=== PATIENT | female | born 1950 | race Caucasian/White ===

== ENCOUNTER 2020-03-04 09:55 | Outpatient (CLI) | payer OTHER, SELFPAY ==
--- NOTE | 2020-03-04 11:22 | ECG_ITS ---
Measurements Intervals [place] Rate: 80 P: -11 AL: 158 QRS: -33 QRSD: 101 T: 46 QT: 380 QTc: 439 Interpretive Statements SINUS RHYTHM LEFT AXIS DEVIATION POOR R WAVE PROGRESSION, ANTERIOR LEADS BORDERLINE T WAVE ABNORMALITY- ANTEROLATERAL LEADS BASELINE ARTIFACT- I, II, III, AVR, AVL, AVF BORDERLINE ECG Electronically Signed On 03-04-2020 12:25:40 CDT by Corby Bain D.O.
[2020-03-04 11:55] LABS: Add Urine Microscopic? YES; Appearance Urine Clear (Clear); Bacteria Urine Trace /hpf; Bilirubin Urine Negative (Negative); Color Urine Yellow (Yellow); Glucose Urine UA Negative (Negative); Ketones Urine Negative (Negative); Leukocyte Esterase Ur Trace LEU/UL (Negative); Mucus Urine Rare /lpf; Nitrate Urine Positive (Negative); Protein Urine Negative (Negative); Specific Grav Ur 1.021 (1.001-1.035); Squamous Epithelial Cell Urine Rare /hpf (Few); Urobilinogen Urine Negative mg/dL (<2.0)
[2020-03-04 11:58] LABS: INR 0.9; Prothrombin Time 11.9 Seconds (11.1-14.7)
[2020-03-04 11:59] LABS: Partial Thromboplastin Time 29.9 SECONDS (22.3-36.8)
[2020-03-04 12:00] LABS: Albumin Level 4.1 g/dL (3.5-5.1)
[2020-03-04 12:16] LABS: Hemoglobin A1C 5.4 % (<5.7)
[2020-03-04 12:16] LABS: Urine Cotinine NEGATIVE
[2020-03-04 12:39] LABS: Blood Urine Negative (Negative)
== END 2020-03-04 09:56 | disposition home or self-care (01) ==
PROVIDERS: PCP Internal Medicine; Visit Provider Orthopaedic Surgery
DX: Z01.818 Encounter for other preprocedural examination (principal); M17.11 Unilateral primary osteoarthritis, right knee
CPT/HCPCS: 36415; 80307; 81001; 82040; 83036; 85610; 85730; 86850; 86900; 86901; 87077; 87081; 87086; 87088; 87186; 93005

== ENCOUNTER 2020-03-11 00:10 | Outpatient (CLI) | payer OTHER, SELFPAY ==
[2020-03-11 20:23] LABS: SARS-CoV-2 RNA PCR Negative
== END 2020-03-11 00:11 | disposition home or self-care (01) ==
LOC: ANHCOVIDDT 00:10
PROVIDERS: PCP Internal Medicine; Visit Provider Orthopaedic Surgery
DX: Z01.812 Encounter for preprocedural laboratory examination (principal); Z20.828 Contact with and (suspected) exposure to other viral communicable diseases; M17.11 Unilateral primary osteoarthritis, right knee
CPT/HCPCS: 87635; C9803; U0003

== ENCOUNTER 2020-03-14 15:52 | Observation (INO) | payer OTHER, SELFPAY ==
[2020-03-04 09:34] VITALS: BP 126/78; PULSE 90; RESP 16; TEMP 37.2; O2SAT 96; BMI 26.0
--- NOTE | 2020-03-12 12:36 | WPDANESEPPF ---
Anes - Initial Pre Proc Eval Procedure: Operation Date: 03/13/20 07:30 Proposed Procedures p Right Total Knee Arthroplasty - Elvin Mon MD s Removal Hardware Right Anterior Cruciate Ligament - Elvin Mon MD Date/Time: 03/12/20 12:36 Surgeon: Elvin Mon MD Pre Op Diagnosis: Right Knee DJD Patient Data Age: 70 Gender: F Height: 1.66 m Weight: 72.1 kg Last Vital Signs Temp 37.2 C 03/04/20 09:34 Pulse 90 03/04/20 09:34 Resp 16 03/04/20 09:34 BP 126/78 03/04/20 09:34 Pulse Ox 96 03/04/20 09:34 Allergies Allergy/AdvReac Type Severity Reaction Status Date / Time codeine AdvReac Unknown Nausea and Verified 03/13/20 06:54 Vomiting Home Medications Medication Instructions Recorded Confirmed Type chlorhexidine gluconate 4 % 1 applic TOPICAL ONCE #237 ml 01/15/20 03/13/20 Rx topical liquid amitriptyline 10 mg PO HS 03/04/20 03/13/20 History ascorbic acid (vitamin C) 500 mg PO DAILY 03/04/20 03/13/20 History ascorbic acid-elderberry fruit 1 tablet PO DAILY 03/04/20 03/13/20 History [Airborne (elderberry)] cyanocobalamin (vitamin B-12) 500 mcg PO DAILY 03/04/20 03/13/20 History [Vitamin B-12] hydrochlorothiazide 12.5 mg PO QAM 03/04/20 03/13/20 History levothyroxine [Synthroid] 100 mcg PO QAM 03/04/20 03/13/20 History metoprolol tartrate 25 mg PO HS 03/04/20 03/13/20 History [id number] acid-trp897 1 tablet PO DAILY 03/04/20 03/13/20 History [Alive Women's Gummy Vitamin] sulfamethoxazole 800 1 tablet PO BID #20 tablet 03/06/20 03/13/20 Rx mg-trimethoprim 160 mg tablet Patient hx anesthesia problems: none Family hx anesthesia problems: none PMFSH Past Medical History Medical History (Updated 03/12/20 @ 12:38 by Taj Johnson MD) Arthritis Depression Endometriosis HTN (hypertension) Hypothyroidism Overweight (BMI 25.0-29.9) Social History Social History Smoking status: Never smoker Second hand tobacco smoke exposure: No Additional smoking assessment comments: DENIES ANY FORM OF TOBACCO USE Substance use: never Living arrangements: alone Spiritual care concerns: No Anes - Eval Final PreProcedure Day of Procedure 03/12/20 12:36 Patient weight: overweight Heart: regular rate and rhythm Lungs: clear to auscultation and normal air movement Airway: Mallampati scale class II Neurological: alert and oriented Last oral intake: >/= 8 hours ASA classification: II Emergent: no Anesthetic plan: proceed Anesthesia type and monitoring: general LMA Informed Consent: The patient's anesthetic plan and its attendant risks and benefits were discussed with the patient/family/POA. Questions were solicited and answers provided to the satisfaction of the patient/family/POA.
[2020-03-13] VITALS (14 sets, daily range): BP systolic 101–180; BP diastolic 61–81; PULSE 71–81; RESP 12–20; TEMP 36.1–36.9; O2SAT 92–100; BMI 31.5
[2020-03-13] MEDS: LACTATED RINGERS 1,000 ML 30 ML IV CONT ×2 (06:46→09:50)
[2020-03-13] MEDS: ACETAMINOPHEN 500 MG TABLET 1000 MG PO (06:47)
--- NOTE | 2020-03-13 07:07 | WPDANESPNB ---
Anes - Peripheral Nerve Block Date/Time: 03/13/20 07:07 I have discussed with the patient/family/POA the placement of a peripheral nerve block for post-operative pain management, including associated risks, benefits, complications, and side effects. Alternative methods of post-operative analgesia were detailed. Questions were solicited and answers provided to the satisfaction of the patient/family/POA. Time-Out: A pre-procedural Time-Out was completed immediately before starting the procedure and confirmed: Patient Identification, Site, Procedure, Patient Position and the Availability of Requisite Equipment. Clinical Indications: Acute post-operative pain management requested by the operative surgeon. Nerve Block Insertion Note Anes-nerve block: adductor canal right Patient position: supine Skin prep: chlorhexidine Needle: 22 gauge, stimulating, insulated echogenic needle. Needle length: 80 mm Technique: ultrasound Technique comment: in plane Injectate: bupivacaine 0.5% with epi 5 mcg/ml (30cc) Observations: tolerated well Complications: none Procedure start time:: 730 Procedure end time:: 73
--- NOTE | 2020-03-13 07:18 | WPDHPUPDATE1 ---
History and Physical Update Update Date/Time: 03/13/20 07:18 History and Physical has been reviewed, including an updated exam of the patient. There are NO changes in the patient's condition. Risks, benefits, and alternatives have been discussed and questions answered. Patient agrees to proceed with procedure.
[2020-03-13] MEDS: CELECOXIB 200 MG CAPSULE PO ×2 (07:29→17:05)
[2020-03-13] MEDS: TRANEXAMIC ACID 1,000MG/ISO100 1,000 MG/100 ML BAG 200 MG IVPB (07:42)
[2020-03-13] MEDS: ceFAZolin 2 GM/D5W 50 ML 2 GM/50 ML BAG IVPB ×3 (07:43→23:56)
[2020-03-13] MEDS: GENTAMICIN BONE CEMENT REFOBACIN 1 EACH TOPICAL (08:17)
[2020-03-13] MEDS: TRANEXAMIC ACID 1,000 MG/10 ML AMPUL 1000 MG IV PUSH (09:02)
--- NOTE | 2020-03-13 09:47 | PM.OP ---
Procedure Note - Brief Procedure Note - Brief Date of procedure: 03/13/20 Pre-op diagnosis: Right Knee DJD, RETAINED HARDWARE Post-op diagnosis: same Procedure performed: R TKA HARDWARE REMOVAL RIGHT KNEE Anesthesia: GETA Surgeon: Elvin Mon MD Estimated blood loss (mL): 100 Complications: No immediate complications Condition: stable Disposition: PACU
--- NOTE | 2020-03-13 10:33 | SUR.PHASEI ---
[id number] sbar faxed floor notified
--- NOTE | 2020-03-13 10:59 | OP_ITS ---
DATE OF PROCEDURE: 03/13/2020 PREOPERATIVE DIAGNOSES: 1. Right knee DJD. 2. Retained hardware. POSTOPERATIVE DIAGNOSES: 1. Right knee DJD. 2. Retained hardware. PROCEDURE: Right total knee arthroplasty and removal of hardware, right knee. ANESTHESIA: General. COMPLICATIONS: None. INDICATIONS: This is a 70-year-old female with advanced DJD and retained hardware. She was indicated for right total knee arthroplasty with hardware removal. DESCRIPTION OF PROCEDURE: The patient was taken to the operating room in stable condition, placed in a supine position. General anesthesia was induced and then, the right lower extremity was prepped and draped sterilely from the toes to the thighs. Midline skin incision was made and then, the incision continued distally to the old incision, which was just medial to the tibial tubercle. The medial parapatellar arthrotomy was performed. The patella was everted. An IM qing was placed in the femur and distal femoral cut was made at 5 degrees of valgus removing approximately 9 mm of bone from the high side. Then, the knee was sized to a 60 and the cutting block was placed in alignment with Whitesides line and the transepicondylar axis and anterior, posterior, and chamfer cuts were made to the femur. Once that was performed, then the superior lateral ACL screw was identified and it was removed in its entirety. Once that was performed, then an IM qing was placed in tibia and transtibial cut was made removing approximately 10 mm of bone from the high side of the tibia. Once that was performed, the tibial screw from the prior ACL reconstruction was removed in its entirety. The tibia then was planed to a smooth surface. Posterior osteophytes were removed from the femur. Size 67 tibial trial was placed in line with one-third medial aspect of the tibial tubercle and then, a 60 femoral trial was placed and then eventually a 16 CR poly trial was placed. The knee came out to full extension. There was good stability in varus-valgus stress. There was no maltracking of the patella. There was good AP stability. There was no excessive rollback in flexion. The trial instrumentation was removed and then, a Biomet 67 tibial tubercle and a 60 femoral components were cemented into place with a 16 CR poly, which was secured into place. The knee came out to full extension. There was good stability in varus-valgus stress. After the cement was hardened, the knee was evaluated. The tracking of the patella was without any tilt. There was good AP stability and good varus-valgus stability. There was no excessive rollback in flexion. The tourniquet was deflated. The bleeders were cauterized. The wound was irrigated with sterile water and sterile Betadine for 3 minutes straight and then, the deep fascial layers were approximated with #1 Vicryl, subcutaneous with 2-0 Vicryl, and skin with ernie. Wound was washed, placed a sterile dressing. The patient was extubated. Rodney I MT: Lakhwinder
--- NOTE | 2020-03-13 11:10 | ADMGEN ---
This patient, Simi Cohen, was admitted to Medical Room 247-. Patient/family oriented to hospital policies and general routines including ID bracelet, bed and alarms, visiting hours, pain management, procedures, bathroom and other care routines, personal items, smoking policy, room service/diet, and visiting hours. Valuables list has been completed. Information on how to activate the Rapid Response Team has been discussed. Patient/Family are encouraged to report perceived risks to care and to ask questions if they do not understand what they are told or what they should do.
[2020-03-13] MEDS: oxyCODONE/ACETAMINOPHEN 5-325 MG TABLET 1 TABLET PO (11:44)
[2020-03-13] MEDS: diazePAM 5 MG TABLET PO (12:42)
--- NOTE | 2020-03-13 15:38 | PM.IMCN ---
Assessment and Plan Assessment and plan (1) History of total knee arthroplasty: Code(s): Z96.659 - Presence of unspecified artificial knee joint Status: Acute Assessment and Plan: DVT prophylaxis is per Dr. Mon. The patient has SCDs on bilaterally. She is on an aspirin. Postop care per Dr. Mon. Pain management per Dr. Mon. Patient is on Percocet and morphine. (2) Hypothyroidism: Code(s): E03.9 - Hypothyroidism, unspecified Status: Acute Assessment and Plan: Patient had levels checked about 1 month ago were reported as normal. Continue with her levothyroxine to for got today. Will restart morning. (3) HTN (hypertension): Code(s): I10 - Essential (primary) hypertension Status: Acute Assessment and Plan: Her blood pressure is elevated today she takes her metoprolol at night. Her hydrochlorothiazide during the day. (4) Insomnia: Code(s): G47.00 - Insomnia, unspecified Status: Chronic Assessment and Plan: She takes amitriptyline. She said that helps her sleep. HPI Data of Consult Consult date: 03/13/20 Requesting Physician: Elvin Mon MD Primary Care Provider: Meryl HerMD Consult Narrative Narrative: Simi Cohen is a 70 year old female Who has a history of right knee degenerative joint disease. Retained hardware. The patient stated that she had injury to her right knee several years ago he had torn ACL meniscus which had been repaired.. The patient has been having severe wqgz-vj-lwcm pain To her right knee. The patient does not try any injections and did not go through any physical therapy. The patient had some deformity and her leg would bed out. The patient was Nikita having a right total knee replacement before the knee went out altogether. The patient underwent a right total knee arthroplasty and removal of retained hardware per Dr. Mon today. She said that she did have a nerve block she had a right total knee arthroplasty and removal of hardware right knee please see the operative report. The patient was having some discomfort today. She states that she takes her blood pressure medicine at night so she had not taken any today. She did not take her thyroid medicine yet today. She recently had labs about a month ago and according to the records they were all within normal limits and she was cleared for surgery. I thank Dr. Mon for allowing to us to consult on this pleasant lady today. I spent approximately 30 minutes on the patient today. Date of service is 03/13/2020 Review of Systems Review of Systems: All systems reviewed & are unremarkable except as noted in HPI and below Constitutional: Constitutional: Reports as per HPI and Reports no additional constitutional complaints Eyes: Eyes: Reports as per HPI and Reports no additional eye complaints ENT: Reports system reviewed and no additional complaints, except as documented and Reports Normal hearing present Cardiovascular: Cardiovascular: Reports no additional cardiovascular complaints Respiratory: Respiratory: Reports no additional respiratory complaints and Reports no additional respiratory complaints Gastrointestinal: Gastrointestinal: Reports as per HPI and Reports no additional gastrointestinal complaints Musculoskeletal: Musculoskeletal: Reports no additional musculoskeletal complaints Integumentary/Breasts: Skin/Breast: Reports system reviewed and no additional complaints, except as docu and Reports as per HPI Neurologic: Reports system reviewed and no additional complaints, except as documented, Reports as per HPI and Reports Normal hearing present Psychiatric: Psychiatric: Reports no additional psychiatric complaints and Reports as per HPI Endocrine: Endocrine: Reports no additional endocrine complaints Hematologic/Lymphatic: Hematologic/Lymphatic: Reports no additional hematologic/lymphatic complaints Allergic/Im
[2020-03-13] MEDS: DOCUSATE SODIUM 100 MG CAPSULE PO (17:05)
[2020-03-13] MEDS: MORPHINE SULFATE 4 MG/ML INJ IV PUSH ×2 (17:05→22:19)
[2020-03-13] MEDS: SODIUM CHLORIDE 0.9% IV 1,000 ML 125 ML IV CONT (17:45)
[2020-03-13] MEDS: AMITRIPTYLINE HCL 10 MG TABLET PO (21:28)
[2020-03-13] MEDS: METOPROLOL TARTRATE 25 MG TABLET PO (21:28)
[2020-03-13] MEDS: ONDANSETRON INJ 4 MG/2 ML VIAL IV PUSH (22:18)
[2020-03-14] VITALS: BP 126/62; PULSE 73; RESP 18; TEMP 36.5; O2SAT 97
--- NOTE | ~2020-03-14 | XR_ITS ---
EXAMINATION: XR knee RT 2V DATE: 03/13/2020 10:05 INDICATION: Total right knee arthroplasty. Postop. TECHNIQUE: 2 views of right knee were obtained. COMPARISON: Right knee radiographs 02/29/2020 FINDINGS: There is a total right knee arthroplasty without patellar resurfacing in near-anatomic alig nment. No fracture. There is gas in the knee joint and soft tissues, consistent with recent surgery. Anterior skin ernie are noted. IMPRESSION: 1. Total right knee arthroplasty in near-anatomic alignment. Reviewed, dictated and finalized at location A.
[2020-03-14] MEDS: SODIUM CHLORIDE 0.9% IV 1,000 ML 125 ML IV CONT (02:30)
[2020-03-14 04:48] VITALS: BP 107/62; PULSE 58; RESP 20; TEMP 36.6; O2SAT 96
[2020-03-14 05:51] LABS: Basophils Percent Auto 0.2 % (0.2-1.2); Eosinophils Percent Auto 0.2 % (0-4.4); Hematocrit 33.2 % (37.0-47.0); Hemoglobin 10.7 g/dL (12.0-15.0); Immature Granulocyte Absolute 0.05 K/mm3 (0.00-0.031); Immature Granulocyte Percent A 0.5 % (0-0.5); Lymphocytes Absolute Auto 2.41 K/mm3 (0.9-3.2); Mean Corpuscular HGB Conc 32.2 g/dl (32-36); Mean Corpuscular Hemoglobin 31.5 pg (26-34); Mean Corpuscular Volume 97.6 fl (80-100); Mean Platelet Volume 9.7 fl (7.4-10.4); Monocytes Percent Auto 9.5 % (2.6-8.5); Neutrophils Percent Auto 66.6 % (45.5-73.1); Platelet Count Result 184 k/mm3 (150-375); Red Cell Distribution Width 14.5 % (11.5-14.5); White Blood Count 10.5 K/mm3 (4.5-10.0)
[2020-03-14 06:07] LABS: Anion Gap 3 mmol/L (8-16); Blood Urea Nitrogen 12 mg/dL (7-17); Calcium 7.9 mg/dL (8.4-10.2); Carbon Dioxide 27 mmol/L (22-30); Chloride 107 mmol/L (98-107); Estimated CRCL calculation 63 ml/min; Estimated Glomerular Filt Rate > 60; Glucose 119 mg/dL (65-105); Potassium 4.9 mmol/L (3.4-5.0); Sodium 137 mmol/L (137-145)
[2020-03-14] MEDS: LEVOTHYROXINE SODIUM 100 MCG TABLET PO (06:33)
[2020-03-14] MEDS: oxyCODONE/ACETAMINOPHEN 5-325 MG TABLET 1 TABLET PO ×4 (08:04→21:35)
[2020-03-14] MEDS: CELECOXIB 200 MG CAPSULE PO ×2 (08:06→16:33)
[2020-03-14] MEDS: ceFAZolin 2 GM/D5W 50 ML 2 GM/50 ML BAG IVPB (08:06)
[2020-03-14] MEDS: DOCUSATE SODIUM 100 MG CAPSULE PO ×2 (08:07→16:32)
[2020-03-14] MEDS: ASPIRIN 325 MG ENTERIC TABLET 650 MG PO (08:07)
[2020-03-14] MEDS: hydroCHLOROthiazide 12.5 MG CAPSULE PO (08:08)
[2020-03-14 08:48] VITALS: BP 139/69; PULSE 69; RESP 17; TEMP 36.7; O2SAT 97
--- NOTE | 2020-03-14 09:03 | PM.PNORT ---
Progress Note: A&P Assessment and Plan (1) History of total knee arthroplasty: Qualifiers: Laterality: right Qualified Code(s): Z96.651 - Presence of right artificial knee joint Code(s): Z96.659 - Presence of unspecified artificial knee joint Status: Acute Assessment and Plan: POD #1: RIGHT TKA Continue PT/OT. WBAT. Walker. Continue pain control. Ice. No pillows under knee. Reinforced incentive spirometry use. SCDs. Continue DVT prophylaxis with Aspirin. Monitor dressing. Change prior to discharge. Dispo: Home with Home Health pending progress with PT/OT and medical clearance. Subjective Subjective Date/Time Seen: 03/14/ 09:03 POD #1: RIGHT TKA Feeling better, improvement in nausea. C/o pain. Well controlled. No other complaints. Review of Systems Review of Systems: All systems reviewed & are unremarkable except as noted in HPI and below Constitutional: Constitutional: Denies fever(s) and Denies headache(s) ENT: Denies headache(s) Cardiovascular: Cardiovascular: Denies chest pain, Denies diaphoresis, Denies palpitations and Denies dyspnea Respiratory: Respiratory: Denies dyspnea Gastrointestinal: Gastrointestinal: Denies abdominal pain, Denies constipation, Denies nausea and Denies vomiting Genitourinary: Genitourinary: Reports nocturia and Denies dysuria Musculoskeletal: Musculoskeletal: Reports arthralgias (Right Knee ) and Reports joint swelling (Right Knee ) Neurologic: Denies headache(s) Endocrine: Endocrine: Denies palpitations Exam Const: General: comfortable and no acute distress Resp: Effort & Inspection: normal respiratory effort Cardio: Rate: regular rate Rhythm: regular rhythm GI: GI Palp: Yes Soft to palpation, No Tenderness to palpation present (GI) and No Guarding due to palpation present (GI) Skin: Wounds: wounds noted Other: Incision c/d/i. No surrounding redness/warmth. No hematoma. Mild ecchymosis. No wound dehiscence. Neuro: Cognition (Neuro): normal cognition Other: NV intact aside from block. Moves toes. Sensation intact to light touch. +ankle dorsiflexion/plantarflexion. 2+ pedal pulses. Extrem: Right upper extremity: normal to inspection, full ROM and normal capillary refill Left upper extremity: normal to inspection, full ROM and normal capillary refill Right lower extremity: normal to inspection, full ROM (ROM limited due to recent surgical intervention ) and knee Details: tenderness (diffuse, mild ) and swelling (diffuse, mild ) Left lower extremity: normal to inspection Psych: Mental Status: mental status grossly normal Objective Data Vital Signs Vital Signs: Vital Signs - 24 hr 03/13/20 09:55 03/13/20 10:10 03/13/20 10:25 Temperature 36.1 C L Pulse Rate 79 76 75 Respiratory Rate 16 20 20 Blood Pressure 143/81 H 161/76 H 153/79 H Pulse Oximetry 100 100 93 03/13/20 10:40 03/13/20 11:03 03/13/20 11:10 Temperature 36.5 C Pulse Rate 73 74 76 Respiratory Rate 16 15 14 Blood Pressure 162/74 H 163/81 H Pulse Oximetry 92 92 95 03/13/20 11:18 03/13/20 11:48 03/13/20 12:48 Temperature 36.8 C 36.3 C L 36.5 C Pulse Rate 71 73 72 Respiratory Rate 12 14 19 Blood Pressure 174/70 H 180/75 H 150/72 H Pulse Oximetry 95 99 99 03/13/20 16:09 03/13/20 18:13 03/13/20 20:00 Temperature 36.6 C 36.9 C 36.8 C Pulse Rate 72 71 79 Respiratory Rate 17 17 20 Blood Pressure 163/77 H 147/65 H 130/62 Pulse Oximetry 100 99 93 03/13/20 21:28 03/14/20 00:00 03/14/20 04:48 Temperature 36.5 C 36.6 C Pulse Rate 78 73 58 L Respiratory Rate 18 20 Blood Pressure 126/62 107/62 Pulse Oximetry 97 96 Intake/Output Intake/Output: Intake & Output 03/11/20 03/12/20 03/13/20 03/14/20 23:59 23:59 23:59 23:59 Intake Total 200 1150 Output Total 300 550 Balance -100 600 Meds/Results Medications: Active Medications Generic Name Dose Route Start Last Admin Trade Name Freq PRN Reason Stop Dose Admin
[2020-03-14] MEDS: ONDANSETRON INJ 4 MG/2 ML VIAL IV PUSH ×2 (09:12→13:18)
[2020-03-14] MEDS: MORPHINE SULFATE 4 MG/ML INJ IV PUSH (13:11)
[2020-03-14 14:00] VITALS: BP 131/50; PULSE 74; RESP 17; TEMP 36.5; O2SAT 93
--- NOTE | 2020-03-14 14:20 | PM.IMPN ---
Progress Note: A&P Assessment and Plan (1) History of total knee arthroplasty: Qualifiers: Laterality: right Qualified Code(s): Z96.651 - Presence of right artificial knee joint Code(s): Z96.659 - Presence of unspecified artificial knee joint Status: Acute Assessment and Plan: Patient underwent right total knee arthroplasty and removal of hardware on 03/13/[address] Mon. She tolerated the procedure well. Her pain is well controlled at this time. Postop care, weight-bearing status, dressing changes, and DVT prophylaxis per Dr. Mon. (2) Hypothyroidism: Qualifiers: Hypothyroidism type: unspecified Qualified Code(s): E03.9 - Hypothyroidism, unspecified Code(s): E03.9 - Hypothyroidism, unspecified Status: Acute Assessment and Plan: Patient reports outpatient labs approximately 1 month ago showed TSH within normal limits reported to her by her PCP. I have not physically seen these results. Continue p.o. levothyroxine. (3) HTN (hypertension): Qualifiers: Hypertension type: essential hypertension Qualified Code(s): I10 - Essential (primary) hypertension Code(s): I10 - Essential (primary) hypertension Status: Acute Assessment and Plan: Blood pressure evaluated today and stable. Previous blood pressures elevated, probably secondary to pain and missing her antihypertensives as she was NPO. Continue metoprolol and HCTZ. (4) UTI (urinary tract infection): Qualifiers: Urinary tract infection type: acute cystitis Code(s): N39.0 - Urinary tract infection, site not specified Status: Acute Assessment and Plan: Outpatient urine culture 03/06/2020 grew >100,000 CFU E coli. She completed 7 days of antibiotic therapy with Bactrim. She is asymptomatic. No need for further antibiotic treatment at this time. (5) Insomnia: Qualifiers: Insomnia type: unspecified Qualified Code(s): G47.00 - Insomnia, unspecified Code(s): G47.00 - Insomnia, unspecified Status: Chronic Assessment and Plan: She slept well last night. Patient is on amitriptyline. Continue. Subjective Date/time seen: 03/14/20 14:20 Interval history: Date of service: 03/14/2020 Patient 70-year-old female with a history hypertension hyperthyroidism here for a right total knee arthroplasty. she is feeling well today. Her pain is well controlled at this time, currently rated 4/10 in her right knee. Earlier this morning her knee was bumped by the bedside table which caused her some pain. She also felt a little bit nauseous this morning but this has subsided. She never vomited. She was able to eat lunch and keep down food. She has no shortness of breath, cough, chest pain, or palpitations. She denies headache, dizziness, or lightheadedness. She denies abdominal pain. She has not had a bowel movement since surgery but she was passing gas earlier today. She is urinating regularly and denies dysuria or hematuria. She previously was reporting some urgency but this is better now. She was recently started on treatment for urinary tract infection with Bactrim. Review of Systems Review of Systems: Narrative: A 12 point review of systems was reviewed with pertinent positives and negatives as per HPI. Exam Narrative: Exam Narrative: Ms. Cohen is a well-nourished 70-year-old female who is lying supine in bed. She appears comfortable and is in no acute respiratory distress. HR 58, BP 107/62, RR 20, T 98.0?, 96% on room air Neuro: awake, alert and oriented x4, speech clear, no focal neuro deficits noted HEENMT: normocephalic, atraumatic, EOMI, sclerae anicteric, moist oral mucosa, tongue midline Neck: supple, no lymphadenopathy Respiratory: clear to auscultation bilaterally, nonlabored breathing Cardio: regular rate, regular rhythm with S1-S2 Abdomen: nondistended, norm
[2020-03-14 21:33] VITALS: PULSE 82
[2020-03-14] MEDS: AMITRIPTYLINE HCL 10 MG TABLET PO (21:33)
[2020-03-14] MEDS: METOPROLOL TARTRATE 25 MG TABLET PO (21:33)
[2020-03-14 22:13] VITALS: BP 122/58; PULSE 82; RESP 16; TEMP 36.2; O2SAT 98
[2020-03-15] MEDS: LEVOTHYROXINE SODIUM 100 MCG TABLET PO (06:35)
[2020-03-15 07:44] VITALS: BP 120/59; PULSE 65; RESP 16; TEMP 36.6; O2SAT 93
[2020-03-15 08:45] VITALS: O2SAT 98
[2020-03-15] MEDS: oxyCODONE/ACETAMINOPHEN 5-325 MG TABLET 1 TABLET PO ×2 (08:47→16:10)
[2020-03-15] MEDS: DOCUSATE SODIUM 100 MG CAPSULE PO ×2 (08:47→16:09)
[2020-03-15] MEDS: CELECOXIB 200 MG CAPSULE PO ×2 (08:47→16:09)
[2020-03-15] MEDS: ASPIRIN 325 MG ENTERIC TABLET 650 MG PO (08:47)
[2020-03-15] MEDS: hydroCHLOROthiazide 12.5 MG CAPSULE PO (08:47)
--- NOTE | 2020-03-15 09:36 | PM.PNORT ---
Progress Note: A&P Assessment and Plan (1) History of total knee arthroplasty: Qualifiers: Laterality: right Qualified Code(s): Z96.651 - Presence of right artificial knee joint Code(s): Z96.659 - Presence of unspecified artificial knee joint Status: Acute Assessment and Plan: POD #2: RIGHT TKA Continue PT/OT. WBAT. Walker. Continue pain control. Ice. No pillows under knee. Reinforced incentive spirometry use. SCDs. Continue DVT prophylaxis with Aspirin. Monitor dressing. Change today. Dispo: Home with Home Health today pending medical clearance. Subjective Subjective Date/Time Seen: 03/15/ 09:36 POD#2: RIGHT TKA No new complaints. Feeling better. Working with PT/OT. No more nausea. Tolerating Diet. Wants to go home today. Review of Systems Review of Systems: All systems reviewed & are unremarkable except as noted in HPI and below Constitutional: Constitutional: Denies fever(s) and Denies headache(s) ENT: Denies headache(s) Cardiovascular: Cardiovascular: Denies chest pain, Denies diaphoresis, Denies palpitations and Denies dyspnea Respiratory: Respiratory: Denies dyspnea Gastrointestinal: Gastrointestinal: Denies abdominal pain, Denies constipation, Denies nausea and Denies vomiting Genitourinary: Genitourinary: Reports nocturia and Denies dysuria Musculoskeletal: Musculoskeletal: Reports arthralgias (Right Knee ) and Reports joint swelling (Right Knee ) Neurologic: Denies headache(s) Endocrine: Endocrine: Denies palpitations Exam Const: General: comfortable and no acute distress Resp: Effort & Inspection: normal respiratory effort Cardio: Rate: regular rate Rhythm: regular rhythm GI: GI Palp: Yes Soft to palpation, No Tenderness to palpation present (GI) and No Guarding due to palpation present (GI) Skin: Wounds: wounds noted Other: Incision c/d/i. No surrounding redness/warmth. No hematoma. Mild ecchymosis. No wound dehiscence. Neuro: Cognition (Neuro): normal cognition Other: NV intact. Moves toes. Sensation intact to light touch. +ankle dorsiflexion/plantarflexion. 2+ pedal pulses. Extrem: Right upper extremity: normal to inspection, full ROM and normal capillary refill Left upper extremity: normal to inspection, full ROM and normal capillary refill Right lower extremity: normal to inspection, full ROM (ROM limited due to recent surgical intervention ) and knee Details: tenderness (diffuse, mild ) and swelling (diffuse, mild ) Left lower extremity: normal to inspection Psych: Mental Status: mental status grossly normal Objective Data Vital Signs Vital Signs: Vital Signs - 24 hr 03/14/20 14:00 03/14/20 21:33 03/14/20 22:13 Temperature 36.5 C 36.2 C L Pulse Rate 74 82 82 Respiratory Rate 17 16 Blood Pressure 131/50 L 122/58 L Pulse Oximetry 93 98 03/15/20 07:44 Temperature 36.6 C Pulse Rate 65 Respiratory Rate 16 Blood Pressure 120/59 L Pulse Oximetry 93 Intake/Output Intake/Output: Intake & Output 03/12/20 03/13/20 03/14/20 03/15/20 23:59 23:59 23:59 23:59 Intake Total 200 2920 100 Output Total 300 550 Balance -100 2370 100 Meds/Results Medications: Active Medications Generic Name Dose Route Start Last Admin Trade Name Freq PRN Reason Stop Dose Admin Acetaminophen 1,000 mg 03/13/20 11:03 Tylenol Tablet PO Q6H PRN Mild Pain (1-3) Amitriptyline HCl 10 mg 03/13/20 21:00 03/14/20 21:33 Elavil PO 10 mg HS DEVENDRA Administration Aspirin 650 mg 03/14/20 09:00 03/15/20 08:47 Aspirin Ec PO 650 mg DAILY DEVENDRA Administration Celecoxib 200 mg 03/13/20 17:00 03/15/20 08:47 Celebrex PO 200 mg BIDWM DEVENDRA Administration Diazepam 5 mg 03/13/20 11:03 03/13/20 12:42 Valium Po PO 5 mg Q8H PRN Administration Spasms Diphenhydramine HCl 25 mg 03/13/20 11:03 Benadryl Inj IV PUSH Q6H PRN Itching Docusate Sodium 100 mg 03/13/20 17:00
--- NOTE | 2020-03-15 10:55 | PM.IMPN ---
Progress Note: A&P Assessment and Plan (1) History of total knee arthroplasty: Qualifiers: Laterality: right Qualified Code(s): Z96.651 - Presence of right artificial knee joint Code(s): Z96.659 - Presence of unspecified artificial knee joint Status: Acute Assessment and Plan: Patient underwent right total knee arthroplasty and removal of hardware on 03/13/[address] Mon. She tolerated the procedure well. Her pain is well controlled at this time. Postop care, weight-bearing status, dressing changes, and DVT prophylaxis per Dr. Mon. (2) Hypothyroidism: Qualifiers: Hypothyroidism type: unspecified Qualified Code(s): E03.9 - Hypothyroidism, unspecified Code(s): E03.9 - Hypothyroidism, unspecified Status: Acute Assessment and Plan: Patient reports outpatient labs approximately 1 month ago showed TSH within normal limits reported to her by her PCP. I have not physically seen these results. Continue p.o. levothyroxine. (3) HTN (hypertension): Qualifiers: Hypertension type: essential hypertension Qualified Code(s): I10 - Essential (primary) hypertension Code(s): I10 - Essential (primary) hypertension Status: Acute Assessment and Plan: Blood pressure evaluated today and stable. Previous blood pressures elevated, probably secondary to pain and missing her antihypertensives as she was NPO. Continue metoprolol and HCTZ. (4) UTI (urinary tract infection): Qualifiers: Urinary tract infection type: acute cystitis Code(s): N39.0 - Urinary tract infection, site not specified Status: Acute Assessment and Plan: Outpatient urine culture 03/06/2020 grew >100,000 CFU E coli. She completed 7 days of outpatient antibiotic therapy with Bactrim. She is asymptomatic. No need for further antibiotic treatment at this time. (5) Insomnia: Qualifiers: Insomnia type: unspecified Qualified Code(s): G47.00 - Insomnia, unspecified Code(s): G47.00 - Insomnia, unspecified Status: Chronic Assessment and Plan: She slept well last night. Patient is on amitriptyline. Continue. Additional Plan Okay with discharge today from a medical standpoint. Thank you for allowing me to participate in care for this patient. Subjective Date/time seen: 03/15/20 10:55 Interval history: Date of service: 03/14/2020 Patient 70-year-old female with a history hypertension hyperthyroidism here for a right total knee arthroplasty. she is feeling well today. Her right knee pain is better controlled. She had therapy today and tolerated well. She is here for discharge home. She will continue home therapy and then will transfer to outpatient therapy. She has no additional concerns at this time. She denies dysuria, urgency, frequency, or hematuria. She denies shortness of breath, cough, chest pain, abdominal pain, nausea, vomiting, fever, chills, headache, or body aches. her appetite has been good. She has been sleeping well. Review of Systems Review of Systems: Narrative: A 12 point review of systems was reviewed with pertinent positives and negatives as per HPI. Exam Narrative: Exam Narrative: Ms. Cohen is a well-nourished 70-year-old female who is lying supine in bed. She appears comfortable and is in no acute respiratory distress. HR 65, BP 120/59, RR 16, T 97.8?, 98% on room air Neuro: awake, alert and oriented x4, speech clear, no focal neuro deficits noted HEENMT: normocephalic, atraumatic, EOMI, sclerae anicteric, moist oral mucosa, tongue midline Neck: supple, no lymphadenopathy Respiratory: clear to auscultation bilaterally, nonlabored breathing Cardio: regular rate, regular rhythm with S1-S2 Abdomen: nondistended, normoactive bowel sounds, soft, nontender to palpation Extremities: no edema, erythema, cyanosis, or clubbing, DP pulses
--- NOTE | 2020-03-15 13:29 | PM.DS ---
DS: Admitting Diagnosis Admitting Diagnosis Admitting Diagnosis: Right Knee DJD, RETAINED HARDWARE DS: Discharge Diagnosis Discharge Diagnosis (1) History of total knee arthroplasty: Qualifiers: Laterality: right Qualified Code(s): Z96.651 - Presence of right artificial knee joint Code(s): Z96.659 - Presence of unspecified artificial knee joint Status: Acute Assessment and Plan: POD #2: RIGHT TKA Continue PT/OT. WBAT. Walker. Continue pain control. Ice. No pillows under knee. Reinforced incentive spirometry use. SCDs. Continue DVT prophylaxis with Aspirin. Monitor dressing. Change today. Dispo: Home with Home Health today pending medical clearance. DS: Summary Hospital Course Reason for hospitalization: Patient admitted status post right total knee replacement and removal of hardware. Hospital Course: 70-year-old female admitted for postoperative medical management, pain control and PT /OT status post right total knee replacement and excision of hardware. Patient progressed well with formal physical therapy. Patient was cleared from a medical standpoint to be discharged home. Patient will follow up with us in 3 weeks for reassessment. She will be discharged home with home health at this time. Status at Discharge Functional status at discharge: uses cane/walker Overall status at discharge: patient is progressing back to baseline Time Spent with Patient Time attestation: Total time spent providing and/or coordinating discharge services: Exam Const: General: comfortable and no acute distress Resp: Effort & Inspection: normal respiratory effort Cardio: Rate: regular rate Rhythm: regular rhythm GI: GI Palp: Yes Soft to palpation, No Tenderness to palpation present (GI) and No Guarding due to palpation present (GI) Skin: Wounds: wounds noted Other: Incision c/d/i. No surrounding redness/warmth. No hematoma. Mild ecchymosis. No wound dehiscence. Neuro: Cognition (Neuro): normal cognition Other: NV intact. Moves toes. Sensation intact to light touch. +ankle dorsiflexion/plantarflexion. 2+ pedal pulses. Extrem: Right upper extremity: normal to inspection, full ROM and normal capillary refill Left upper extremity: normal to inspection, full ROM and normal capillary refill Right lower extremity: normal to inspection, full ROM (ROM limited due to recent surgical intervention ) and knee Left lower extremity: normal to inspection Psych: Mental Status: mental status grossly normal Discharge Plan Discharge Attending physician on discharge: Elvin Mon Consulting providers: Sylvia Sahni ; Hilda Goff Discharging Clinician: Juliet Phipps Anticipated Discharge Date/Time: 03/15/20 15:00 Patient Disposition: Home Health Service Activity: may shower, no driving and follow weight bearing status Diet: as tolerated Wound Care Instructions: follow printed instructions and other - see discharge instructions Discharge Instructions: Post Op Total Knee Replacement Instructions Dr. Elvin Mon ?Your dressing will be changed prior to your discharge. You will be sent home with one additional dressing to be changed in 5 days by the home health RN. Your ernie will be removed on the 14th day after surgery and steri-strips will be placed. ?You may shower with your dressing but do not submerge in a bath tub. ?Do not drive or operate machinery until you are released by Dr. Mon. ?Do not walk without a walker for any reason until you are released by Dr. Mon. ?Continue to use your ice machine. Please use a towel or pillow case to protect your skin before applying your ice machine. ?Do NOT place a pillow under your knee. You may use a pillow from the calf down if needed. ?You may begin use of your CPM machine at home if you have been given one pre-operatively. DO NOT USE WHILE YOU ARE SLEEPING. ?Your follow up appointment is indicated in your discharge instr
[2020-03-15 14:00] VITALS: BP 119/65; PULSE 96; RESP 16; TEMP 36.5; O2SAT 98
== END 2020-03-15 16:37 | disposition home health service (06) ==
LOC: ANHSURGERY 16:05 → ANH2MED 16:05
PROVIDERS: Admitting Provider Orthopaedic Surgery; PCP Internal Medicine; Visit Provider Orthopaedic Surgery
PROC: (CPT 27447; principal; 2020-03-13 07:30)
PROC: (CPT 27447; 2020-03-13 07:30)
DX: M17.11 Unilateral primary osteoarthritis, right knee (principal); G89.18 Other acute postprocedural pain; E03.9 Hypothyroidism, unspecified; I10 Essential (primary) hypertension; G47.00 Insomnia, unspecified
CPT/HCPCS: 27447; 64447; 36415; 73560; 80048; 85025; 97110; 97116; 97162; 97165; 97530; 97535; A9270; C1713; C1776; G0378; J0171; J0690; J1100; J2250; J2270; J2405; J2704; J2795; J3010; J7030; J7120

== ENCOUNTER 2020-05-13 08:00 | Outpatient (RCR) | payer OTHER, SELFPAY ==
--- NOTE | 2020-04-08 10:08 | PTOPEVAL ---
INITIAL PHYSICAL THERAPY EVALUATION and PLAN OF CARE Thank you for referring Simi Cohen to [facility].? Simi is scheduled to be seen for physical therapy? 2x/week for 3 weeks, 1x/wk x 3 weeks. Please review, sign, date and return this plan of care DOYLE. I agree with and certify that the following plan of care is medically necessary. Referring Physician Date Admitting Provider: Attending Provider: Elvin Mon MD Referring Provider: *PT Outpatient Evaluation Start: 04/08/20 08:19 Freq: Status: Active Protocol: Document 04/08/20 08:19 AC (Rec: 04/08/20 10:07 AC [email or web address]) Therapy Assessment Status Assessment Status Assessment Status Evaluation Outpatient Past Medical History Past Medical History Source of Past Medical History Recalled from Previous Visit, Confirmed with Patient/Family Neurological History Hx Migraine Yes: MIRGRAINES PRIOR TO MENAPAUSE Cardiovascular History Hx Hypertension Yes Hx Other Cardiac Disorders Yes: EXERCISE- WALKS 1-2 MILES /DAY, 5 DAYS/WEEK Respiratory History Hx Respiratory Disorders No Significant History Gastrointestinal History Hx Hernia Yes: S/P RT INGUINAL HERNIA REPAIR- YEARS AGO Genitourinary History Hx Other Genitourinary Disorders Yes: INCONTINENT AT TIMES Musculoskeletal History Hx Arthritis Yes: KNEES Hx Joint Replacement Yes: R TKA 03/13/2020 Hx Orthopedic Surgery Yes: RT KNEE ANT CRUCIATE LIGAMENT REPAIR WITH SCREWS ~ 2002 Hx Other Musculoskeletal Disorders Yes: DJD RT KNEE Hematological History Hx Hematological Disorders No Significant History Endocrine History Hx Hypothyroidism Yes HEENT History Hx Tonsillectomy Yes: YOUNG ADULT Integumentary History Hx Skin Disorders No Significant History Reproductive History Hx Endometriosis Yes Hx Post Menopausal Yes Hx Other Reproductive Disorders Yes: RT SALPINGO-OOPHORECTOMY Psychosocial History Hx Depression Yes: HX DEPRESSION WITH FAMILY DEATHS Pain History History of Any Previous or Ongoing No Significant History Instance of Pain Anesthesia History Hx Anesthesia Reactions No Significant History Evaluation Information Problem Diagnosis R TKA Onset 03/13/2002 Subjective Information 2 nights in hospital, Query Text:As Reported By Patient/ nauseated from anesthesia, Family home health x 2-3 wks Doing exercises from home health
--- NOTE | 2020-04-29 08:31 | PCPTNOTE ---
Patient called & cancelled scheduled her 8:00 a.m. appointment at 8:30 a.m. this date due to illness - sinus issues.
--- NOTE | 2020-05-13 12:49 | PTOPEVAL ---
PHYSICAL THERAPY DISCHARGE SUMMARY Thank you for referring Simi Cohen to [facility].? Simi has been seen in PT x 9 visits. All goals have been met and her HEP was reviewed which she is to continue to perform. I agree with Simi's discharge from physical therapy. Referring Physician Date Admitting Provider: Attending Provider: Elvin Mon MD Referring Provider: *PT Outpatient Evaluation Start: 04/08/20 08:19 Freq: Status: Active Protocol: Document 05/13/20 08:04 AC (Rec: 05/13/20 09:07 AC [email or web address]) Therapy Assessment Status Assessment Status Assessment Status Discharge Evaluation Information Problem Subjective Information Simi reports that she has Query Text:As Reported By Patient/ returned to most activities Family except for motorcycle riding and mowing the lawn but no problems with indoor activities. Stairs are no problem. She does still have R lateral thigh pain but that is getting better. She does have a clucking sensation with R knee at times - since an incident with a dog and pool - but can over come it with keeping knee tight with muscular contraction. She reports that her knee will feel still feel tight at times . Pain Assessment Timing of Pain Assessment Timing of Pain Assessment Assessment Pain Scale Pain Scale Used Numeric (1 - 10) Self Report Pain Assessment Right Knee(s) Reported Pain Level 0 Lowest Pain Intensity 0 Greatest Pain Intensity 2 Pain Score Pain Score 0: Self Report Interventions Used Interventions Used By Clinicians Exercise Lower Extremity Range of Motion Knee Range of Motion Right Knee Flexion Range of Motion - Active 130 Knee Extension Range of Motion - Active 0 Query Text: Knee Range of Motion Limitations Soft Tissue Restriction Lower Extremity Muscle Strength Testing Hip Strength Bilateral Hip Strength Comments R hip flexion 4+/5 IR 4/5, ER 4/5, abduction 4/5, extension 5/5 Knee Strength Right Knee Flexion Strength 5 Normal Knee Extension Strength 5 Normal Edema Assessment Location Right Knee(s) Edema Degree 1+ (2 mm or less) Balance Assessment Time Up Go (TUG) Assistive Devices None Comments
== END 2020-05-29 09:03 | disposition home or self-care (01) ==
LOC: ANHHIPT 08:00
PROVIDERS: PCP Internal Medicine; Visit Provider Orthopaedic Surgery
DX: Z47.1 Aftercare following joint replacement surgery (principal); Z96.651 Presence of right artificial knee joint
CPT/HCPCS: 97110; 97161

== ENCOUNTER 2020-08-30 13:59 | Emergency (ER) | payer OTHER, SELFPAY ==
--- NOTE | ~2020-08-30 | XR_ITS ---
XR lumbar spine 2-3V DATE: 08/30/2020 14:35 INDICATION: Lower back and right hip pain after a fall TECHNIQUE: AP, lateral and coned lateral lumbosacral views COMPARISON: None FINDINGS: There is diffuse osteopenia. There is a comminuted burst fracture deformity of L4 with greater than 50% loss of height. This appea rs recent in origin. No other lumbar spine fracture is evident. Pedicle distances appear relatively short interval fourth and particularly L5; primary spinal stenosi s is not excluded. No spondylolisthesis. The lumbar pedicles are intact. The sacroiliac joints are intact. Multiple small calcified gallstones are noted. There is abdominal aortic calcification without apparent aneurysm. IMPRESSION: Recent comminuted burst fracture of L4 with greater than 50% loss of height Cannot exclude primary spinal stenosis Diffuse osteopenia Cholelithiasis Reviewed, dictated and finalized at location A. [facility] IMPRESSION: Recent comminuted burst fracture of L4 with greater than 50% loss o f height Cannot exclude primary spinal stenosis Diffuse osteopenia Cholelithiasis
--- NOTE | ~2020-08-30 | XR_ITS ---
EXAMINATION: XR hip RT min 2V DATE: 08/30/2020 14:35 INDICATION: Right hip pain. TECHNIQUE: 2 views of right hip were obtained. COMPARISON: None. FINDINGS: Bone alignment is normal. No fracture. There is mild right hip osteoarthritis. IMPRESSION: 1. Mild right hip osteoarthritis. Reviewed, dictated and finalized at location A. 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
--- NOTE | 2020-08-30 14:08 | ED.LOWEXIN ---
HPI - Extremity Injury (Lower) General Chief Complaint: Back Pain/Injury Stated Complaint: right hip/back pain fell Time Seen by Provider: 08/30/20 14:08 Source: patient and RN notes reviewed Mode of arrival: ambulatory Limitations: no limitations History of Present Illness HPI Narrative: 70 yo female presents to the [facility] with C/O right hip pain and lower back pain post fall. Patient reports that she fell backwards onto her buttock approximately 1500 yesterday. Denies hitting head. No loss of consciousness. Denies any loss of bowel. Patient does have a history of incontinence and states she has had an increase of this last night. States that she came to [facility] because she was unable to walk. Related Data Home Medications Medication Instructions Recorded Confirmed Alive Women's Gummy Vitamin 1 tablet PO DAILY 03/04/20 05/16/20 amitriptyline 10 mg PO HS 03/04/20 05/16/20 ascorbic acid (vitamin C) 500 mg PO DAILY 03/04/20 05/16/20 hydrochlorothiazide 12.5 mg PO QAM 03/04/20 05/16/20 levothyroxine [Synthroid] 100 mcg PO QAM 03/04/20 05/16/20 metoprolol tartrate 25 mg PO DAILY 03/04/20 05/16/20 cyanocobalamin (vitamin B-12) 1,000 mcg SUBLINGUAL DAILY 03/13/20 05/16/20 Allergies Allergy/AdvReac Type Severity Reaction Status Date / Time codeine AdvReac Unknown Nausea and Verified 08/30/20 14:13 Vomiting Review of Systems Review of Systems: Narrative: CONSTITUTIONAL: Denies fever, chills, or sweats. EYES: Denies visual changes, redness, or discharge. ENT: Denies rhinorrhea, congestion, sore throat, or otalgia. CARDIOVASCULAR: Denies chest pain, palpitations, or edema. RESPIRATORY: Denies cough or dyspnea. GASTROINTESTINAL: Denies abdominal pain, nausea, vomiting, or diarrhea. GENITOURINARY: Denies dysuria or hematuria. SKIN: Denies rash or itching. MUSCULOSKELETAL: Positive lower back pain and right hip pain NEUROLOGIC: Denies headache, numbness, or weakness. PSYCHIATRIC: Denies anxiety or depression. All other systems reviewed are negative, except as documented in HPI. [facility] Past Medical History Medical History (Updated 08/30/20 @ 15:22 by Elva Ramos) Arthritis Chronic back pain Depression Endometriosis HTN (hypertension) Hypothyroidism Insomnia Overweight (BMI 25.0-29.9) Surgical History Surgical History H/O abdominal hysterectomy H/O hernia repair H/O lateral meniscus repair of right knee History of tonsillectomy History of total knee arthroplasty 03/13/2020 right knee Bicalho Family History Family History Mother Heart disease Father Heart disease Social History Social History Social History: the patient is . She has 2 children. She does not have a durable power patent prosecution attorney for healthcare. She is a full code. She still continues to work at the [employer] in [place]. She drinks about 1-2 glasses of wine per week. She never smoked. No marijuana or illicit drugs. She has had a 12th grade education. Smoking status: Never smoker Second hand tobacco smoke exposure: No Additional smoking assessment comments: DENIES ANY FORM OF TOBACCO USE Substance use: never Spiritual care concerns: No Comments At the time of my signature, I reviewed and agree with the nursing past medical, surgical, social, and family history. There is no relevant family history pertinent to the patient complaint. Exam Narrative: Exam Narrative: GENERAL: This is a well-nourished, well-developed patient, in mild pain HEAD: normocephalic, atraumatic. EYES: PERRL. Sclera clear/white. Vision is grossly intact. NECK: Neck supple, non-tender without lymphadenopathy, masses or thyromegaly. CARDIOVASCULAR: Regular rate and rhythm without murmurs, gallops, or rubs. RESPIRATORY: Clear to auscultation. Breath s
[2020-08-30 14:20] VITALS: BP 165/92; PULSE 90; RESP 20; TEMP 37.2; O2SAT 95
== END 2020-08-30 15:34 | disposition short-term general hospital (02) ==
PROVIDERS: Emergency Provider Nurse Practitioner; PCP Internal Medicine
DX: S32.041A Stable burst fracture of fourth lumbar vertebra, initial encounter for closed fracture (principal); W19.XXXA Unspecified fall, initial encounter; M16.11 Unilateral primary osteoarthritis, right hip; M19.90 Unspecified osteoarthritis, unspecified site; F32.9 Major depressive disorder, single episode, unspecified; N80.9 Endometriosis, unspecified; I10 Essential (primary) hypertension; E03.9 Hypothyroidism, unspecified
CPT/HCPCS: 72100; 73502; 99215; G0463

== ENCOUNTER 2020-09-06 19:38 | IRF | payer OTHER, MEDICARE, SELFPAY ==
[2020-09-06 21:06] VITALS: BMI 25.7
[2020-09-06 21:07] VITALS: BP 118/53; PULSE 72; RESP 18; TEMP 36.5; O2SAT 97
[2020-09-06 21:28] LABS: Mean Platelet Volume 9.2 fl (7.4-10.4); Platelet Count Result 200 k/mm3 (150-375)
[2020-09-06 22:00] VITALS: BP 119/50; PULSE 71; RESP 18; TEMP 36.2; O2SAT 98
--- NOTE | 2020-09-06 22:40 | ADMGEN ---
This patient, Simi Cohen, was admitted to [facility] Room 223-02. Patient/family oriented to hospital policies and general routines including ID bracelet, bed and alarms, visiting hours, pain management, procedures, bathroom and other care routines, personal items, smoking policy, room service/diet, and visiting hours. Information on how to activate the Rapid Response Team has been discussed. Patient/Family are encouraged to report perceived risks to care and to ask questions if they do not understand what they are told or what they should do.
[2020-09-06] MEDS: HEPARIN SODIUM 5,000 UNITS/ML VIAL 5000 UNITS SUB-Q (23:55)
[2020-09-06] MEDS: AMITRIPTYLINE HCL 10 MG TABLET PO (23:57)
[2020-09-06] MEDS: ACETAMINOPHEN 500 MG TABLET PO (23:57)
[2020-09-07 05:20] VITALS: BP 150/64; PULSE 67; RESP 18; TEMP 36.3; O2SAT 98
[2020-09-07] MEDS: LEVOTHYROXINE SODIUM 100 MCG TABLET PO (05:55)
[2020-09-07] MEDS: ACETAMINOPHEN 500 MG TABLET PO ×3 (05:55→18:15)
[2020-09-07 06:46] LABS: Basophils Percent Auto 0.5 % (0.2-1.2); Eosinophils Absolute Auto 0.3 K/mm3 (0-0.3); Eosinophils Percent Auto 4.4 % (0-4.4); Hematocrit 39.1 % (37.0-47.0); Hemoglobin 12.4 g/dL (12.0-15.0); Immature Granulocyte Absolute 0.01 K/mm3 (0.00-0.031); Immature Granulocyte Percent A 0.2 % (0-0.5); Lymphocytes Absolute Auto 1.73 K/mm3 (0.9-3.2); Lymphocytes Percent Auto 30.2 % (18.3-44.2); Mean Corpuscular HGB Conc 31.7 g/dl (32-36); Mean Corpuscular Hemoglobin 29.8 pg (26-34); Mean Platelet Volume 9.2 fl (7.4-10.4); Monocytes Absolute Auto 0.6 K/mm3 (0.1-0.6); Monocytes Percent Auto 9.6 % (2.6-8.5); Neutrophils Absolute Auto 3.2 K/mm3 (1.3-6.7); Neutrophils Percent Auto 55.1 % (45.5-73.1); Platelet Count Result 217 k/mm3 (150-375); Red Blood Count 4.16 M/mm3 (4.2-5.4); Red Cell Distribution Width 14.6 % (11.5-14.5); White Blood Count 5.7 K/mm3 (4.5-10.0)
[2020-09-07] MEDS: HEPARIN SODIUM 5,000 UNITS/ML VIAL 5000 UNITS SUB-Q ×3 (06:52→21:21)
[2020-09-07 07:11] LABS: Anion Gap 5 mmol/L (8-16); Blood Urea Nitrogen 19 mg/dL (7-17); Calcium 9.2 mg/dL (8.4-10.2); Carbon Dioxide 32 mmol/L (22-30); Chloride 102 mmol/L (98-107); Estimated CRCL calculation 66 ml/min; Estimated Glomerular Filt Rate > 60; Glucose 94 mg/dL (65-105); Potassium 4.3 mmol/L (3.4-5.0); Sodium 139 mmol/L (137-145)
[2020-09-07 08:37] VITALS: PULSE 67
[2020-09-07] MEDS: hydroCHLOROthiazide 12.5 MG CAPSULE PO (08:37)
[2020-09-07] MEDS: polyethylene glycoL 3350 17 GM POWD.PACK PO (08:37)
[2020-09-07] MEDS: HYDROcodone/acetaminophen (*CRX) 5-325 MG TABLET 1 TAB PO (08:37)
[2020-09-07] MEDS: METOPROLOL TARTRATE 25 MG TABLET PO (08:37)
[2020-09-07] MEDS: CYCLOBENZAPRINE HCL 5 MG TABLET PO (08:37)
[2020-09-07 14:00] VITALS: BP 150/79; PULSE 73; RESP 18; TEMP 35.9; O2SAT 95
--- NOTE | 2020-09-07 14:37 | WPDREHABHP ---
H&P: HPI History of Present Illness Date/Time: 09/07/20 14:37 Chief Complaint: L4 burst fracture Narrative: HISTORY OF PRESENT ILLNESS: 70 years old right-handed female has been admitted to rehab floor with the patient's primary rehab impairment category of orthopedic/other and etiological diagnosis of L4 burst fracture I saw the patient [id number] at 1:00 p.m. H/P: # the patient is a 70 years old female with past medical history of hypertension and urinary incontinence who presented to [facility] on August 30, 2020 after suffering a fall on August 29, 2020. The patient reported falling on her bottom but denied hitting her head or becoming unconscious. Patient reported difficulties in sleeping with increased pain in her right hip and back. Radiological investigation at [facility] reveals an L4 burst fracture. The patient was transferred to [facility] on August 30, 2020. Repeated spine surgeons were consulted and the patient was fitted with TLSO brace. TLS 0 brace is to be worn for ambulation. Patient's hospitalization has been significant for acute posttraumatic pain, impaired mobility, impaired ability to perform ADL as independently, dizziness, hypertension, urinary incontinence, and constipation. The patient required physical and occupational therapy to regain prior independence like driving working full-time with ambulation, Transfers, ADLS. Patient's acute pain is being monitored and managed with oral pain medications. Patient blood pressure is monitored and managed with oral medications. Heparin 5000units q.8 hours for DVT prophylaxis until ambulating 150ft. #COVID: The patient has not traveled outside the [place] or had contact with someone who is ill that has traveled outside the [place] in the past 21 days. The patient has not traveled to an area of the [place] that is experiencing known transmission of the Coronavirus and has not had close personal contact with anyone that has. The patient does not have a fever. COVID test Negative August 31, 2020. # therapy was initiated at the acute care facility and patient was transferred to us from [facility] on September 06, 2020 FALLS OR SURGERIES: the patient has had no major surgery in the last 100 days. The patient has had falls in the past year. The patient has had falls with injury in the past year. PAST MEDICAL HISTORY: Hypertension urinary incontinence. PAST SURGICAL HISTORY: Right total knee arthroscopy and right shoulder arthroscopy. SOCIAL HISTORY: Never smoker. No alcohol or drug abuse. Patient lives independently in a 1 level house with 3 steps to enter. The patient was completely independent previously and was working and driving. 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 The patient has a son and daughter that it have a limited ability to assist following rehab. The patient does have an elderly neighbor that will assist, as well as, a friend. FAMILY HISTORY: Noncontributory to current hospitalization PRIOR LEVEL OF FUNCTION: Eating was [INDEPENDENT] Oral Care was [INDEPENDENT] Toileting Hygiene was [INDEPENDENT] Shower/Bathing was [INDEPENDENT] Upper Body Dressing was [INDEPENDENT] Lower Body Dressing was [INDEPENDENT] Donning/[place] Footwear was [INDEPENDENT] Rolling Left and Right was [INDEPENDENT] Sit to Lying was [INDEPENDENT] Lying to Sitting was [INDEPENDENT] Sit to Stand was [INDEPENDENT] Bed to Chair Transfers was [INDEPENDENT] Toilet Transfers was [INDEPENDENT] Walking was [INDEPENDENT] [>500 feet] with [NO DEVICE] Wheelchair Mobility was [NOT APPLICABLE PRIOR TO ADMISSION] Stairs were [INDEPENDENT] CURRENT LEVEL OF FUNCTION: Eating is independent Oral Care is supervision or touching assistance Toileting Hygiene is substantial or maximal assistance Shower/Bathing is substantial or maximal assistance Upper Body Dressing is partial or moderate assist
[2020-09-07 21:19] VITALS: BP 136/72; PULSE 72; RESP 16; TEMP 36.4; O2SAT 95
[2020-09-07] MEDS: AMITRIPTYLINE HCL 10 MG TABLET PO (21:20)
[2020-09-08] MEDS: CYCLOBENZAPRINE HCL 5 MG TABLET PO (00:02)
[2020-09-08 05:45] VITALS: BP 148/78; PULSE 73; RESP 16; TEMP 36.6; O2SAT 96
[2020-09-08] MEDS: LEVOTHYROXINE SODIUM 100 MCG TABLET PO (06:01)
[2020-09-08] MEDS: HEPARIN SODIUM 5,000 UNITS/ML VIAL 5000 UNITS SUB-Q ×3 (06:05→21:33)
[2020-09-08] MEDS: HYDROcodone/acetaminophen (*CRX) 5-325 MG TABLET 1 TAB PO ×2 (06:11→11:29)
[2020-09-08] MEDS: ACETAMINOPHEN 500 MG TABLET PO ×4 (07:06→17:44)
[2020-09-08 08:00] VITALS: PULSE 73; RESP 16; O2SAT 96
[2020-09-08 08:57] VITALS: PULSE 73
[2020-09-08] MEDS: hydroCHLOROthiazide 12.5 MG CAPSULE PO (08:57)
[2020-09-08] MEDS: METOPROLOL TARTRATE 25 MG TABLET PO (08:57)
[2020-09-08] MEDS: polyethylene glycoL 3350 17 GM POWD.PACK PO (08:58)
[2020-09-08 14:00] VITALS: BP 148/70; PULSE 80; RESP 20; TEMP 36.1; O2SAT 97
[2020-09-08] MEDS: AMITRIPTYLINE HCL 10 MG TABLET PO (21:33)
[2020-09-08 22:00] VITALS: BP 119/65; PULSE 77; RESP 20; TEMP 36.1; O2SAT 94
[2020-09-09] MEDS: ACETAMINOPHEN 500 MG TABLET PO ×5 (00:22→23:56)
[2020-09-09] MEDS: HYDROcodone/acetaminophen (*CRX) 5-325 MG TABLET 1 TAB PO ×2 (05:16→22:10)
[2020-09-09] MEDS: HEPARIN SODIUM 5,000 UNITS/ML VIAL 5000 UNITS SUB-Q ×3 (05:16→22:03)
[2020-09-09 05:48] VITALS: BP 132/76; PULSE 81; RESP 18; TEMP 36.3; O2SAT 99
[2020-09-09] MEDS: LEVOTHYROXINE SODIUM 100 MCG TABLET PO (05:53)
[2020-09-09 08:00] VITALS: PULSE 84; RESP 18; O2SAT 99
[2020-09-09 09:09] VITALS: PULSE 84
[2020-09-09] MEDS: METOPROLOL TARTRATE 25 MG TABLET PO (09:09)
[2020-09-09] MEDS: polyethylene glycoL 3350 17 GM POWD.PACK PO (09:09)
[2020-09-09] MEDS: hydroCHLOROthiazide 12.5 MG CAPSULE PO (09:09)
--- NOTE | 2020-09-09 11:23 | RPD ---
INDIVIDUALIZED PLAN OF CARE FOR Simi Cohen Brief Synthesis of Pre-Admission Screen, Post-Admission Evaluation and Therapy Evaluations: The patient presents to rehab with an L4 burst fracture. Comorbidities include acute post-traumatic pain, hypertension, urinary incontinence, urinary urgency, constipation, dizziness, s/p ground level fall, gait instability, and osteoarthritis. The complexity of the patient's medical management, nursing, and therapy needs require an inpatient rehab hospital stay with a physician-led interdisciplinary team approach. The patient?s needs will be best met in an intensive program vs. at a lower level of care. The patient requires physician services for medical oversight, management of post-trauma complications in setting of present comorbidities, and pain management. The patient requires nursing services for anticoagulation therapy, infection protection, medication management and education, pressure relief, monitoring of labs, bowel and bladder training, skin care, and fall/safety precautions Deficits include: ADLs, Balance, Endurance, Family Training/Education, Mobility, Pain Management, ROM, Safety, Strength, and Transfers. Secondary Art Teacher/Case Management for: Discharge Planning and Patient/Family Counseling Physical Therapy: 5 days per week for 90 minutes. Treatments may include: Therapeutic Exercise, Gait Training, Neuromuscular Re-education, Transfer Training, Community Reintegration, Bed Mobility, Patient/Family Education, Wheelchair Mobility Group Therapy/Concurrent Therapy Rationales: -Improve attention span during functional activities in a distracted environment. -Enhance problem solving and/or adequate judgment skills during functional activities in a distracted environment. -Promote increased safety awareness in a distracted environment to reduce fall risk with functional tasks, transfers, and ambulation to allow a more safe, self-sufficient return to the home environment. -Improve dynamic balance skills to promote safety and independence with functional activities in a distracted environment for maximum gain. Occupational Therapy: 5 days per week for 90 minutes. Treatments may include: Therapeutic Exercise, Therapeutic Activity, Cognitive Training, Self-Care Transfer Training, Community Reintegration, Home Management, Patient/Family Education, Wheelchair Mobility Training, Energy Conservation Training Group Therapy/Concurrent Therapy Rationales: -Allow therapist to observe and teach generalization and carry-over of skills learned in individual therapy. -Enhance problem solving and sequencing skills during therapeutic activities in a distracted environment. -Promote increased safety awareness in a realistic setting to reduce fall risk with functional tasks due to visual and verbal distractions. -Increase functional level with ADLs, ADL transfers and use of adaptive equipment through therapeutic activities with others while promoting safety to allow a more safe, self-sufficient return home. Medical Prognosis: Good Anticipated Length of Stay: 10 days Rehab Goals: Eating Goal: 06-Independent Oral Hygiene Goal: 06-Independent Toileting Hygiene Goal: 04-Supervision or Touching Assistance Shower/Bathe Self Goal: 04-Supervision or Touching Assistance Upper Body Dressing Goal: 04-Supervision or Touching Assistance Lower Body Dressing Goal: 04-Supervision or Touching Assistance Putting On/Taking Off Footwear Goal: 04-Supervision or Touching Assistance Rolling Left and Right Goal: 06-Independent Sit to Lying Goal: 06-Independent Lying to Sitting on Side of Bed Goal: 06-Independent Sit to Stand Goal: 06-Independent Chair/Mmo[place]of-[place]cu[place] Transfer Goal: 06-Independent Toilet Transfer Goal: 05-Setup or Clean Up Assistance Car Transfer Goal: 06-Independent Walk 10' Goal: 06-Independent Walk 50' with Two Turns Goal: 06-Independent Walk 150' Goal: 06-Independent Walk 10' on Uneven Surface Goal: 06-Independent 1 Step (Curb) Goal
[2020-09-09 12:26] VITALS: BMI 25.7
[2020-09-09 14:00] VITALS: BP 147/78; PULSE 82; RESP 20; TEMP 36.8; O2SAT 98
--- NOTE | 2020-09-09 14:20 | WPDNEURORHBP ---
Subjective Date/time seen: 09/09/20 14:20 70 years old with L4 burst fracture and history of hypertension bladder dysfunction involving the physical therapy and occupational therapy and remains stable her routine lab is normal, COVID is negative, temp is 36.8? pulse 82 respirations 20 pulse ox 98 on room air blood pressure 147/78 Review of Systems Review of Systems: All systems reviewed & are unremarkable except as noted in HPI and below Functional Status Ambulation Ability Ability to Ambulate 10 Feet: Standby Assistance Ability to Ambulate 50 Feet With 2 Turns: Contact Guard Ambulation Assistive Devices: Walker, Wheeled Transfers Ability Ability to Transfer In/Out of Chair: Standby Assistance Exam Const: General: cooperative, healthy appearing, comfortable and no acute distress Nutritional Appearance: average body habitus Limitations: physical limitations ( fractured spine) HENMT: Head: normocephalic Ears: hearing grossly normal bilaterally General nose exam: Normal external nose present and No nasal discharge present Face and sinus: normal facial exam Mouth: Yes Normal oral and palatal mucosa present Eyes: General: appearance normal, both eyes and all related structures Neck: Neck: full ROM Resp: Effort & Inspection: normal respiratory effort Cardio: Jugular venous distension: no JVD Rate: regular rate Rhythm: regular rhythm GI: Auscultation: normal bowel sounds Back/Spine/Pelvis: Cervical Spine: cervical ROM normal Pelvis: no pain with anterior-posterior compression Skin: General skin exam: no rashes or lesions noted Neuro: General: patient oriented x3 Cranial nerves: Yes CN's II-XII intact bilaterally Cognition (Neuro): normal cognition Speech: normal speech Motor exam (neuro): 5/5 motor strength present throughout Deep tendon reflexes (DTR's): Right triceps reflex intensity grade: 1+, Left triceps reflex intensity grade: 1+, Rt Biceps (C5, C6): 1+, Left biceps reflex intensity grade: 1+, Right brachioradialis reflex intensity grade: 1+, Left brachioradialis reflex intensity grade: 1+, Right patellar reflex intensity grade: 1+, Left patellar reflex intensity grade: 1+, Right ankle reflex intensity grade: 1+ and Left ankle reflex intensity grade: 1+ Plantar Reflex Responses: downgoing: bilateral Coordination: [id number] test normal Psych: Appearance: grossly normal Objective Data Vital Signs Vital Signs: Vital Signs - 24 hr 09/08/20 22:00 09/09/20 05:48 09/09/20 08:00 Temperature 36.1 C L 36.3 C L Pulse Rate 77 81 84 Respiratory Rate 20 18 18 Blood Pressure 119/65 132/76 Pulse Oximetry 94 99 99 09/09/20 09:09 09/09/20 14:00 Temperature 36.8 C Pulse Rate 84 82 Respiratory Rate 20 Blood Pressure 147/78 H Pulse Oximetry 98 Intake/Output Intake/Output: Intake & Output 09/06/20 09/07/20 09/08/20 09/09/20 23:59 23:59 23:59 23:59 Intake Total 720 720 480 Balance 720 720 480 Meds/Results Medications: Active Medications Generic Name Dose Route Start Last Admin Trade Name Freq PRN Reason Stop Dose Admin Acetaminophen 500 mg 09/07/20 00:00 09/09/20 12:19 Acetaminophen 500 Mg Tablet PO 500 mg Q6HR DEVENDRA Administration Hydrocodone Bitart/Acetaminophen 1 tab 09/06/20 21:07 09/09/20 05:16 Hydrocodone/Acetaminophen (*Crx) 5-325 Mg Tablet PO 1 tab Q4H PRN Administration Pain rated 4-6 Amitriptyline HCl 10 mg 09/06/20 23:45 09/08/20 21:33 Amitriptyline Hcl 10 Mg Tablet PO 10 mg HS DEVENDRA Administration Cyclobenzaprine HCl 5 mg 09/06/20 21:16 09/08/20 00:02 Cyclobenzaprine Hcl 5 Mg Tablet PO 5 mg TID PRN Administration muscle spasms Heparin Sodium (Porcine) 5,000 units 09/06/20 22:00 09/09/20 05:16 Heparin Sodium 5,000 Units/Ml Vial SUB-Q 5,000 units Q8HR DEVENDRA Administration Hydrochlorothiazide 12.5 mg 09/07/20 09:00 09/09/20 09:09 Hydrochlorothiazide 12.5 Mg Capsule PO 12.5 mg DAILY DEVENDRA Administration
[2020-09-09] MEDS: AMITRIPTYLINE HCL 10 MG TABLET PO (20:18)
[2020-09-09 22:00] VITALS: BP 127/57; PULSE 81; RESP 16; TEMP 37; O2SAT 93
[2020-09-10] MEDS: HYDROcodone/acetaminophen (*CRX) 5-325 MG TABLET 1 TAB PO (05:03)
[2020-09-10] MEDS: CYCLOBENZAPRINE HCL 5 MG TABLET PO (05:16)
[2020-09-10 06:00] VITALS: BP 131/76; PULSE 73; RESP 18; TEMP 36.6; O2SAT 95
[2020-09-10] MEDS: ACETAMINOPHEN 500 MG TABLET PO ×3 (06:08→17:46)
[2020-09-10] MEDS: LEVOTHYROXINE SODIUM 100 MCG TABLET PO (06:08)
[2020-09-10] MEDS: HEPARIN SODIUM 5,000 UNITS/ML VIAL 5000 UNITS SUB-Q ×3 (06:09→21:07)
[2020-09-10 07:50] VITALS: PULSE 73
[2020-09-10] MEDS: hydroCHLOROthiazide 12.5 MG CAPSULE PO (07:50)
[2020-09-10] MEDS: METOPROLOL TARTRATE 25 MG TABLET PO (07:50)
--- NOTE | 2020-09-10 12:57 | WPDNEURORHBP ---
Subjective Date/time seen: 09/10/20 12:57 70 years old with L4 burst fracture, bladder dysfunction, hypertension involved in the physical therapy. Family meeting was carried out today she is still having some difficulties with taking the brace off and on which will be instructed to the family as well in addition she is complaining of muscle spasm and at time she is incontinent of urine. The medication before coming here for the bladder dysfunction as well, her last lab revealed WBC 5.7 hemoglobin 12.4 platelet count 217, electrolytes normal with BUN only 19 and COVID negative, we will increase her Flexeril to10mg 3 times a day today in addition to bladder scan UA and will be started on treatment for the bladder dysfunction. Review of Systems Review of Systems: All systems reviewed & are unremarkable except as noted in HPI and below Functional Status Ambulation Ability Ability to Ambulate 10 Feet: Contact Guard Ability to Ambulate 50 Feet With 2 Turns: Minimum Assistance X 1 Ambulation Assistive Devices: Walker, Wheeled Transfers Ability Ability to Transfer In/Out of Chair: Contact Guard Exam Const: General: cooperative, comfortable, no acute distress, alert and awake Nutritional Appearance: well nourished and thin Orientation/consciousness: patient oriented x3 Limitations: physical limitations ( because of the fracture and brace) HENMT: Head: normocephalic Ears: hearing grossly normal bilaterally General nose exam: Normal external nose present and No nasal discharge present Face and sinus: normal facial exam Mouth: Yes Normal oral and palatal mucosa present Eyes: General: appearance normal, both eyes and all related structures Alignment and Position: alignment normal Periorbital: periorbital findings normal Eyelids: eyelids normal Conjunctivae: conjunctivae normal Sclera: sclerae normal Cornea: corneas normal Pupils: Equal, round and reactive pupils present EOM: EOMs intact bilaterally Neck: Neck: full ROM Resp: Effort & Inspection: normal respiratory effort and able to speak in complete sentences Auscultation: clear to auscultation bilaterally Cardio: Jugular venous distension: no JVD Rate: regular rate Rhythm: regular rhythm GI: Auscultation: normal bowel sounds Neuro: General: patient oriented x3, tone normal and moves all extremities Cranial nerves: Yes CN's II-XII intact bilaterally Cognition (Neuro): normal cognition Speech: normal speech Motor exam (neuro): 5/5 motor strength present throughout Deep tendon reflexes (DTR's): Right triceps reflex intensity grade: 1+, Left triceps reflex intensity grade: 1+, Rt Biceps (C5, C6): 1+, Left biceps reflex intensity grade: 1+, Right brachioradialis reflex intensity grade: 1+, Left brachioradialis reflex intensity grade: 1+, Right patellar reflex intensity grade: 1+, Left patellar reflex intensity grade: 1+, Right ankle reflex intensity grade: 1+ and Left ankle reflex intensity grade: 1+ Plantar Reflex Responses: downgoing: bilateral Coordination: [id number] test normal Extrem: General: full ROM and capillary refill normal Psych: Appearance: grossly normal Mental Status: mental status grossly normal Affect: normal affect Attitude: cooperative Thought process: Normal thought process present Thought content: Yes Normal thought content present Insight: Good insight present (Psych) Judgement: Good judgement present (Psych) Objective Data Vital Signs Vital Signs: Vital Signs - 24 hr 09/09/20 14:00 09/09/20 22:00 09/10/20 06:00 Temperature 36.8 C 37.0 C 36.6 C Pulse Rate 82 81 73 Respiratory Rate 20 16 18 Blood Pressure 147/78 H 127/57 L 131/76 Pulse Oximetry 98 93 95 09/10/20 07:50 Temperature Pulse Rate 73 Respiratory Rate Blood Pressure Pulse Oximetry Intake/Output Intake/Output: Intake & Output 09/07/20 09/08/20 09/09/20 09/10/20 23:59 23:59 23:59 23:59 Intake Total 720 720 720 240 Balance 720 720 720 240 Meds/Results Medicati
--- NOTE | 2020-09-10 13:24 | PCPTNOTE ---
Simi Cohen was evaluated for a wheeled walker on 09/10/2020 by this physical therapist. The wheeled walker will resolve patient's mobility limitations and will be used for ADL's within the home. The patient can safely use the wheeled walker. ?The wheeled walker will resolve the patient?s mobility deficits, including poor endurance and decreased B LE strength and balance.
[2020-09-10 14:18] VITALS: BP 127/60; PULSE 81; RESP 16; TEMP 37.1; O2SAT 97
[2020-09-10] MEDS: CYCLOBENZAPRINE HCL 10 MG TABLET PO ×2 (14:26→21:08)
[2020-09-10 20:15] VITALS: PULSE 81; RESP 20; O2SAT 94
[2020-09-10 21:03] VITALS: BP 114/56; PULSE 81; RESP 20; TEMP 36.2; O2SAT 94
[2020-09-10] MEDS: AMITRIPTYLINE HCL 10 MG TABLET PO (21:08)
[2020-09-11] MEDS: ACETAMINOPHEN 500 MG TABLET PO ×4 (00:21→17:54)
[2020-09-11] MEDS: LEVOTHYROXINE SODIUM 100 MCG TABLET PO (04:58)
[2020-09-11] MEDS: HEPARIN SODIUM 5,000 UNITS/ML VIAL 5000 UNITS SUB-Q (04:59)
[2020-09-11] MEDS: CYCLOBENZAPRINE HCL 10 MG TABLET PO ×3 (05:00→21:36)
[2020-09-11 05:35] VITALS: BP 126/52; PULSE 83; RESP 20; TEMP 36.3; O2SAT 98
[2020-09-11] MEDS: hydroCHLOROthiazide 12.5 MG CAPSULE PO (08:20)
[2020-09-11 08:22] VITALS: PULSE 83
[2020-09-11] MEDS: HYDROcodone/acetaminophen (*CRX) 5-325 MG TABLET 1 TAB PO (08:22)
[2020-09-11] MEDS: METOPROLOL TARTRATE 25 MG TABLET PO (08:22)
[2020-09-11 14:00] VITALS: BP 129/63; PULSE 78; RESP 20; TEMP 36.2; O2SAT 97
[2020-09-11 20:00] VITALS: PULSE 92; RESP 16; O2SAT 93
[2020-09-11] MEDS: AMITRIPTYLINE HCL 10 MG TABLET PO (21:36)
[2020-09-11 22:00] VITALS: BP 130/63; PULSE 92; RESP 16; TEMP 36.9; O2SAT 93
[2020-09-12] MEDS: ACETAMINOPHEN 500 MG TABLET PO ×5 (00:16→23:47)
[2020-09-12 06:00] VITALS: BP 127/66; PULSE 80; RESP 16; TEMP 36.7; O2SAT 97
[2020-09-12] MEDS: CYCLOBENZAPRINE HCL 10 MG TABLET PO ×3 (06:12→21:55)
[2020-09-12] MEDS: LEVOTHYROXINE SODIUM 100 MCG TABLET PO (06:12)
[2020-09-12] MEDS: hydroCHLOROthiazide 12.5 MG CAPSULE PO (08:49)
[2020-09-12 08:50] VITALS: PULSE 80
[2020-09-12] MEDS: HYDROcodone/acetaminophen (*CRX) 5-325 MG TABLET 1 TAB PO (08:50)
[2020-09-12] MEDS: METOPROLOL TARTRATE 25 MG TABLET PO (08:50)
--- NOTE | 2020-09-12 12:55 | PCDIET ---
Nutrition Follow-Up Complete: Nutrition Diagnosis: Suboptimal oral intake related to unknown etiology as evidenced by average intake of 69% of meals since admission. Nutrition Goal: Patient to consume 75% of meals/supplements or greater. Goal in progress. Patient consuming 75-100% of most meals on regular diet. Requesting to receive Ensure Compact twice per day which is appropriate. Last recorded weight is 67.9 kg. Recommend obtaining new weight. Bowel Motility: Last documented BM on 09/09/20. Labs Reviewed: No new labs available. Meds Noted: Norvo, Elavil, Hydrochlorothiazide, Synthroid, Lopressor, Miralax Additional Notes: No documented skin breakdown. Will continue to monitor with same goal. Nutrition Monitoring and Evaluation: Follow up in 7 days.
[2020-09-12 14:00] VITALS: BP 142/72; PULSE 80; RESP 20; TEMP 36.5; O2SAT 98
[2020-09-12] MEDS: AMITRIPTYLINE HCL 10 MG TABLET PO (19:57)
[2020-09-12 22:00] VITALS: BP 121/58; PULSE 86; RESP 18; TEMP 36.9; O2SAT 93
[2020-09-13 04:25] VITALS: BP 124/69; PULSE 77; RESP 18; TEMP 36.1; O2SAT 93
[2020-09-13] MEDS: LEVOTHYROXINE SODIUM 100 MCG TABLET PO (05:48)
[2020-09-13] MEDS: ACETAMINOPHEN 500 MG TABLET PO ×3 (05:49→17:37)
[2020-09-13] MEDS: CYCLOBENZAPRINE HCL 10 MG TABLET PO ×3 (05:49→21:41)
[2020-09-13 08:00] VITALS: PULSE 77; RESP 18; O2SAT 93
[2020-09-13 08:50] VITALS: PULSE 77
[2020-09-13] MEDS: hydroCHLOROthiazide 12.5 MG CAPSULE PO (08:50)
[2020-09-13] MEDS: METOPROLOL TARTRATE 25 MG TABLET PO (08:50)
[2020-09-13] MEDS: HYDROcodone/acetaminophen (*CRX) 5-325 MG TABLET 1 TAB PO ×2 (08:51→21:40)
[2020-09-13 14:00] VITALS: BP 113/62; PULSE 88; RESP 20; TEMP 36.9; O2SAT 94
[2020-09-13 20:00] VITALS: PULSE 88; RESP 18; O2SAT 93
[2020-09-13] MEDS: AMITRIPTYLINE HCL 10 MG TABLET PO (21:41)
[2020-09-13 22:00] VITALS: BP 121/57; PULSE 88; RESP 18; TEMP 36.6; O2SAT 93
--- NOTE | 2020-09-13 23:24 | PC.NURSE ---
Addendum entered by Ana Lopez RN 09/13/20 23:27: 09/11/20 20:00 integrety assesemnt edit charted on wrong patient Original Note: charted on wrong patient
[2020-09-14] MEDS: ACETAMINOPHEN 500 MG TABLET PO ×4 (04:11→23:00)
[2020-09-14 05:03] VITALS: BP 124/59; PULSE 80; RESP 18; TEMP 36.3; O2SAT 97
[2020-09-14 05:35] LABS: Basophils Absolute Auto 0.1 K/mm3 (0.0-0.1); Basophils Percent Auto 0.7 % (0.2-1.2); Eosinophils Absolute Auto 0.4 K/mm3 (0-0.3); Eosinophils Percent Auto 5.2 % (0-4.4); Hematocrit 38.5 % (37.0-47.0); Immature Granulocyte Absolute 0.02 K/mm3 (0.00-0.031); Immature Granulocyte Percent A 0.3 % (0-0.5); Lymphocytes Absolute Auto 2.41 K/mm3 (0.9-3.2); Lymphocytes Percent Auto 35.8 % (18.3-44.2); Mean Corpuscular HGB Conc 31.2 g/dl (32-36); Mean Corpuscular Hemoglobin 29.8 pg (26-34); Mean Corpuscular Volume 95.5 fl (80-100); Mean Platelet Volume 8.9 fl (7.4-10.4); Monocytes Absolute Auto 0.7 K/mm3 (0.1-0.6); Monocytes Percent Auto 10.5 % (2.6-8.5); Neutrophils Absolute Auto 3.2 K/mm3 (1.3-6.7); Neutrophils Percent Auto 47.5 % (45.5-73.1); Platelet Count Result 256 k/mm3 (150-375); Red Blood Count 4.03 M/mm3 (4.2-5.4); Red Cell Distribution Width 15.6 % (11.5-14.5); White Blood Count 6.7 K/mm3 (4.5-10.0)
[2020-09-14 05:55] LABS: Anion Gap 6 mmol/L (8-16); Blood Urea Nitrogen 18 mg/dL (7-17); Calcium 9.4 mg/dL (8.4-10.2); Carbon Dioxide 31 mmol/L (22-30); Chloride 103 mmol/L (98-107); Estimated CRCL calculation 66 ml/min; Estimated Glomerular Filt Rate > 60; Glucose 96 mg/dL (65-105); Potassium 4.2 mmol/L (3.4-5.0); Sodium 140 mmol/L (137-145)
[2020-09-14] MEDS: CYCLOBENZAPRINE HCL 10 MG TABLET PO ×3 (06:47→21:54)
[2020-09-14] MEDS: LEVOTHYROXINE SODIUM 100 MCG TABLET PO (06:47)
[2020-09-14] MEDS: SALINE 0.65% NAS SOLN 44 ML BTL 1 SPRAY NASAL (07:39)
[2020-09-14 08:00] VITALS: PULSE 80; RESP 18; O2SAT 97
[2020-09-14 08:52] VITALS: PULSE 80
[2020-09-14] MEDS: METOPROLOL TARTRATE 25 MG TABLET PO (08:52)
[2020-09-14] MEDS: hydroCHLOROthiazide 12.5 MG CAPSULE PO (08:52)
[2020-09-14 14:00] VITALS: BP 118/67; PULSE 86; RESP 20; TEMP 36.6; O2SAT 95
--- NOTE | 2020-09-14 14:27 | WPDNEURORHBP ---
Subjective Date/time seen: 09/14/20 14:27 70 years old with L4 burst fracture, bladder dysfunction, hypertension, has been involved in the physical therapy and occupational therapy regularly lab on 09/14 revealed normal CBC, fairly normal basic metabolic panel and negatives starts COVID medications unchanged Review of Systems Review of Systems: All systems reviewed & are unremarkable except as noted in HPI and below Functional Status Ambulation Ability Ability to Ambulate 10 Feet: Independent Ability to Ambulate 50 Feet With 2 Turns: Independent Ability to Ambulate 150 Feet: Standby Assistance Ambulation Assistive Devices: Walker, Wheeled Transfers Ability Ability to Transfer In/Out of Chair: Independent Exam Const: General: cooperative, comfortable and no acute distress Nutritional Appearance: average body habitus Limitations: physical limitations HENMT: Head: normocephalic Ears: hearing grossly normal bilaterally General nose exam: No nasal discharge present Face and sinus: normal facial exam Mouth: Yes Normal oral and palatal mucosa present Eyes: General: appearance normal, both eyes and all related structures Neck: Neck: full ROM Resp: Effort & Inspection: normal respiratory effort Auscultation: clear to auscultation bilaterally Cardio: Jugular venous distension: no JVD Palpation: normal PMI Rate: regular rate Rhythm: regular rhythm GI: Auscultation: normal bowel sounds Skin: General skin exam: no rashes or lesions noted Neuro: General: patient oriented x3 and moves all extremities Cranial nerves: Yes CN's II-XII intact bilaterally Cognition (Neuro): normal cognition Motor exam (neuro): 5/5 motor strength present throughout Deep tendon reflexes (DTR's): Right triceps reflex intensity grade: 1+, Left triceps reflex intensity grade: 1+, Rt Biceps (C5, C6): 1+, Left biceps reflex intensity grade: 1+, Right brachioradialis reflex intensity grade: 1+, Left brachioradialis reflex intensity grade: 1+, Right patellar reflex intensity grade: 1+, Left patellar reflex intensity grade: 1+, Right ankle reflex intensity grade: 1+ and Left ankle reflex intensity grade: 1+ Plantar Reflex Responses: downgoing: bilateral Coordination: [id number] test normal Psych: Appearance: grossly normal Objective Data Vital Signs Vital Signs: Vital Signs - 24 hr 09/13/20 20:00 09/13/20 22:00 09/14/20 05:03 Temperature 36.6 C 36.3 C L Pulse Rate 88 88 80 Respiratory Rate 18 18 18 Blood Pressure 121/57 L 124/59 L Pulse Oximetry 93 93 97 09/14/20 08:00 09/14/20 08:52 Temperature Pulse Rate 80 80 Respiratory Rate 18 Blood Pressure Pulse Oximetry 97 Intake/Output Intake/Output: Intake & Output 09/11/20 09/12/20 09/13/20 09/14/20 23:59 23:59 23:59 23:59 Intake Total 960 720 840 480 Balance 960 720 840 480 Meds/Results Medications: Active Medications Generic Name Dose Route Start Last Admin Trade Name Freq PRN Reason Stop Dose Admin Acetaminophen 500 mg 09/07/20 00:00 09/14/20 12:19 Acetaminophen 500 Mg Tablet PO 500 mg Q6HR DEVENDRA Administration Hydrocodone Bitart/Acetaminophen 1 tab 09/06/20 21:07 09/13/20 21:40 Hydrocodone/Acetaminophen (*Crx) 5-325 Mg Tablet PO 1 tab Q4H PRN Administration Pain rated 4-6 Amitriptyline HCl 10 mg 09/06/20 23:45 09/13/20 21:41 Amitriptyline Hcl 10 Mg Tablet PO 10 mg HS DEVENDRA Administration Cyclobenzaprine HCl 10 mg 09/10/20 14:00 09/14/20 12:19 Cyclobenzaprine Hcl 10 Mg Tablet PO 10 mg Q8HR DEVENDRA Administration Hydrochlorothiazide 12.5 mg 09/07/20 09:00 09/14/20 08:52 Hydrochlorothiazide 12.5 Mg Capsule PO 12.5 mg DAILY DEVENDRA Administration Levothyroxine Sodium 100 mcg 09/07/20 06:30 09/14/20 06:47 Levothyroxine Sodium 100 Mcg Tablet PO 100 mcg DAILY@0630 DEVENDRA Administration Metoprolol Tartrate 25 mg 09/07/20 09:00 09/14/20 08:52 Metoprolol Tartrate 25 Mg Tablet PO 25 mg DAILY DEVENDRA Adm
[2020-09-14 20:00] VITALS: PULSE 86; RESP 20; O2SAT 95
[2020-09-14 21:33] VITALS: BP 121/65; PULSE 88; RESP 18; TEMP 36.6; O2SAT 94
[2020-09-14] MEDS: AMITRIPTYLINE HCL 10 MG TABLET PO (21:54)
[2020-09-15 04:37] VITALS: BP 124/76; PULSE 83; RESP 18; TEMP 36.8; O2SAT 98
[2020-09-15] MEDS: LEVOTHYROXINE SODIUM 100 MCG TABLET PO (06:19)
[2020-09-15] MEDS: ACETAMINOPHEN 500 MG TABLET PO ×3 (06:20→17:11)
[2020-09-15] MEDS: CYCLOBENZAPRINE HCL 10 MG TABLET PO ×3 (06:20→20:20)
[2020-09-15] MEDS: hydroCHLOROthiazide 12.5 MG CAPSULE PO (09:13)
[2020-09-15 09:14] VITALS: PULSE 82
[2020-09-15] MEDS: METOPROLOL TARTRATE 25 MG TABLET PO (09:14)
[2020-09-15 14:00] VITALS: BP 114/54; PULSE 81; RESP 20; TEMP 36.4; O2SAT 97
[2020-09-15] MEDS: AMITRIPTYLINE HCL 10 MG TABLET PO (20:19)
[2020-09-15 21:48] VITALS: BP 119/67; PULSE 91; RESP 16; TEMP 36.8; O2SAT 98
[2020-09-16] MEDS: CYCLOBENZAPRINE HCL 10 MG TABLET PO ×3 (05:50→21:39)
[2020-09-16] MEDS: ACETAMINOPHEN 500 MG TABLET PO ×3 (05:50→17:24)
[2020-09-16] MEDS: LEVOTHYROXINE SODIUM 100 MCG TABLET PO (05:50)
[2020-09-16 06:00] VITALS: BP 135/76; PULSE 85; RESP 16; TEMP 36.6; O2SAT 98
[2020-09-16 08:00] VITALS: PULSE 85; RESP 16; O2SAT 98
--- NOTE | 2020-09-16 09:49 | WPDNEURORHBP ---
Subjective Date/time seen: 09/16/20 09:49 status post L4 burst fracture with bladder dysfunction and hypertension involving the therapy remained afebrile with temp 36.6? pulse 85 respirations 16 pulse ox 98 blood pressure 135/76 and patient is on room air has been no change in the medications, new CBC with WBC 6.7 hemoglobin 12.0 platelet count of 256, BMP fairly normal and COVID test negative on 03/11 Review of Systems Review of Systems: All systems reviewed & are unremarkable except as noted in HPI and below Functional Status Ambulation Ability Ability to Ambulate 10 Feet: Standby Assistance Ability to Ambulate 50 Feet With 2 Turns: Standby Assistance Ability to Ambulate 150 Feet: Standby Assistance Ambulation Assistive Devices: Walker, Wheeled Transfers Ability Ability to Transfer In/Out of Chair: Standby Assistance Exam Const: General: cooperative and no acute distress Nutritional Appearance: average body habitus and thin Limitations: physical limitations HENMT: Head: normocephalic Ears: hearing grossly normal bilaterally General nose exam: Normal external nose present and No nasal discharge present Face and sinus: normal facial exam Mouth: Yes Normal oral and palatal mucosa present Eyes: General: appearance normal, both eyes and all related structures Neck: Neck: full ROM Resp: Effort & Inspection: normal respiratory effort Auscultation: clear to auscultation bilaterally Cardio: Rate: regular rate Rhythm: regular rhythm GI: Auscultation: normal bowel sounds Skin: General skin exam: no rashes or lesions noted Neuro: General: patient oriented x3 Cranial nerves: Yes CN's II-XII intact bilaterally Cognition (Neuro): normal cognition Speech: normal speech Motor exam (neuro): Pronator motor function not present and No tremor noted Sensory Exam: normal sensation Psych: Appearance: grossly normal Objective Data Vital Signs Vital Signs: Vital Signs - 24 hr 09/15/20 14:00 09/15/20 21:48 09/16/20 06:00 Temperature 36.4 C L 36.8 C 36.6 C Pulse Rate 81 91 85 Respiratory Rate 20 16 16 Blood Pressure 114/54 L 119/67 135/76 Pulse Oximetry 97 98 98 Intake/Output Intake/Output: Intake & Output 09/13/20 09/14/20 09/15/20 09/16/20 23:59 23:59 23:59 23:59 Intake Total 840 720 720 240 Balance 840 720 720 240 Meds/Results Medications: Active Medications Generic Name Dose Route Start Last Admin Trade Name Freq PRN Reason Stop Dose Admin Acetaminophen 500 mg 09/07/20 00:00 09/16/20 05:50 Acetaminophen 500 Mg Tablet PO 500 mg Q6HR DEVENDRA Administration Hydrocodone Bitart/Acetaminophen 1 tab 09/16/20 09:15 Hydrocodone/Acetaminophen (*Crx) 5-325 Mg Tablet PO Q4H PRN Pain rated 4-6 Amitriptyline HCl 10 mg 09/06/20 23:45 09/15/20 20:19 Amitriptyline Hcl 10 Mg Tablet PO 10 mg HS DEVENDRA Administration Cyclobenzaprine HCl 10 mg 09/10/20 14:00 09/16/20 05:50 Cyclobenzaprine Hcl 10 Mg Tablet PO 10 mg Q8HR DEVENDRA Administration Hydrochlorothiazide 12.5 mg 09/07/20 09:00 09/15/20 09:13 Hydrochlorothiazide 12.5 Mg Capsule PO 12.5 mg DAILY DEVENDRA Administration Levothyroxine Sodium 100 mcg 09/07/20 06:30 09/16/20 05:50 Levothyroxine Sodium 100 Mcg Tablet PO 100 mcg DAILY@0630 DEVENDRA Administration Metoprolol Tartrate 25 mg 09/07/20 09:00 09/15/20 09:14 Metoprolol Tartrate 25 Mg Tablet PO 25 mg DAILY DEVENDRA Administration Polyethylene Glycol 17 gm 09/11/20 08:33 Polyethylene Glycol 3350 17 Gm Powd.Pack PO DAILY PRN Constipation Sodium Chloride 1 spray 09/14/20 06:47 09/14/20 07:39 Saline 0.65% Mynor Soln 44 Ml Btl NASAL 1 spray Q6HR PRN Administration Congestion Progress Note: A&P Assessment and Plan (1) L4 vertebral fracture: Code(s): S32.049A - Unspecified fracture of fourth lumbar vertebra, initial encounter for closed fracture Status: Acute (2) UTI (urinary tract infection): Quali
[2020-09-16 09:54] VITALS: PULSE 85
[2020-09-16] MEDS: METOPROLOL TARTRATE 25 MG TABLET PO (09:54)
[2020-09-16] MEDS: hydroCHLOROthiazide 12.5 MG CAPSULE PO (09:55)
[2020-09-16 14:00] VITALS: BP 126/74; PULSE 883; RESP 18; TEMP 36.9; O2SAT 95
[2020-09-16] MEDS: HYDROcodone/acetaminophen (*CRX) 5-325 MG TABLET 1 TAB PO (14:00)
[2020-09-16 15:00] VITALS: TEMP 36.9
[2020-09-16 21:29] VITALS: BP 122/59; PULSE 94; RESP 18; TEMP 36.4; O2SAT 93
[2020-09-16] MEDS: AMITRIPTYLINE HCL 10 MG TABLET PO (21:39)
[2020-09-17 05:36] VITALS: BP 139/76; PULSE 89; RESP 18; TEMP 36.5; O2SAT 98
[2020-09-17] MEDS: LEVOTHYROXINE SODIUM 100 MCG TABLET PO (06:46)
[2020-09-17] MEDS: ACETAMINOPHEN 500 MG TABLET PO ×3 (06:46→17:29)
[2020-09-17] MEDS: CYCLOBENZAPRINE HCL 10 MG TABLET PO ×3 (06:46→20:51)
[2020-09-17 10:04] VITALS: PULSE 89
[2020-09-17] MEDS: hydroCHLOROthiazide 12.5 MG CAPSULE PO (10:04)
[2020-09-17] MEDS: METOPROLOL TARTRATE 25 MG TABLET PO (10:04)
--- NOTE | 2020-09-17 13:20 | WPDNEURORHBP ---
Subjective Date/time seen: 09/17/20 13:20 is status post L4 burst fracture with bladder dysfunction hypertension has been involving the therapy, medications are unchanged no new lab, remains afebrile with temp of 36.5? pulse 89 respiration 18 pulse ox 98% blood pressure 139/76 patient is on room air Review of Systems Review of Systems: All systems reviewed & are unremarkable except as noted in HPI and below Functional Status Ambulation Ability Ability to Ambulate 10 Feet: Independent Ability to Ambulate 50 Feet With 2 Turns: Independent Ability to Ambulate 150 Feet: Standby Assistance Ambulation Assistive Devices: Walker, Wheeled Transfers Ability Ability to Transfer In/Out of Chair: Independent Exam Const: General: cooperative, comfortable and no acute distress Nutritional Appearance: average body habitus and well nourished Limitations: physical limitations HENMT: Head: normocephalic General nose exam: Normal external nose present Face and sinus: normal facial exam Eyes: General: appearance normal, both eyes and all related structures Alignment and Position: alignment normal Periorbital: periorbital findings normal Eyelids: eyelids normal Conjunctivae: conjunctivae normal Sclera: sclerae normal Cornea: corneas normal Pupils: Equal, round and reactive pupils present EOM: EOMs intact bilaterally Resp: Effort & Inspection: normal respiratory effort Auscultation: clear to auscultation bilaterally Cardio: Jugular venous distension: no JVD Rate: regular rate GI: Auscultation: normal bowel sounds Skin: General skin exam: no rashes or lesions noted Neuro: General: patient oriented x3 Cranial nerves: Yes CN's II-XII intact bilaterally Cognition (Neuro): normal cognition Sensory Exam: normal sensation Psych: Appearance: grossly normal Objective Data Vital Signs Vital Signs: Vital Signs - 24 hr 09/16/20 14:00 09/16/20 15:00 09/16/20 21:29 Temperature 36.9 C 36.9 C 36.4 C L Pulse Rate 883 H 94 Respiratory Rate 18 18 Blood Pressure 126/74 122/59 L Pulse Oximetry 95 93 09/17/20 05:36 09/17/20 10:04 Temperature 36.5 C Pulse Rate 89 89 Respiratory Rate 18 Blood Pressure 139/76 Pulse Oximetry 98 Intake/Output Intake/Output: Intake & Output 09/14/20 09/15/20 09/16/20 09/17/20 23:59 23:59 23:59 23:59 Intake Total 720 720 720 360 Balance 720 720 720 360 Meds/Results Medications: Active Medications Generic Name Dose Route Start Last Admin Trade Name Ozzie PRN Reason Stop Dose Admin Acetaminophen 500 mg 09/07/20 00:00 09/17/20 13:08 Acetaminophen 500 Mg Tablet PO 500 mg Q6HR DEVENDRA Administration Hydrocodone Bitart/Acetaminophen 1 tab 09/16/20 09:15 09/16/20 14:00 Hydrocodone/Acetaminophen (*Crx) 5-325 Mg Tablet PO 1 tab Q4H PRN Administration Pain rated 4-6 Amitriptyline HCl 10 mg 09/06/20 23:45 09/16/20 21:39 Amitriptyline Hcl 10 Mg Tablet PO 10 mg HS DEVENDRA Administration Cyclobenzaprine HCl 10 mg 09/10/20 14:00 09/17/20 13:08 Cyclobenzaprine Hcl 10 Mg Tablet PO 10 mg Q8HR DEVENDRA Administration Hydrochlorothiazide 12.5 mg 09/07/20 09:00 09/17/20 10:04 Hydrochlorothiazide 12.5 Mg Capsule PO 12.5 mg DAILY DEVENDRA Administration Levothyroxine Sodium 100 mcg 09/07/20 06:30 09/17/20 06:46 Levothyroxine Sodium 100 Mcg Tablet PO 100 mcg DAILY@0630 DEVENDRA Administration Metoprolol Tartrate 25 mg 09/07/20 09:00 09/17/20 10:04 Metoprolol Tartrate 25 Mg Tablet PO 25 mg DAILY DEVENDRA Administration Polyethylene Glycol 17 gm 09/11/20 08:33 Polyethylene Glycol 3350 17 Gm Powd.Pack PO DAILY PRN Constipation Sodium Chloride 1 spray 09/14/20 06:47 09/14/20 07:39 Saline 0.65% Mynor Soln 44 Ml Btl NASAL 1 spray Q6HR PRN Administration Congestion Progress Note: A&P Assessment and Plan (1) L4 vertebral fracture: Code(s): S32.049A - Unspecified fracture of fourth lumbar vertebra, initia
[2020-09-17 14:00] VITALS: BP 120/66; PULSE 88; RESP 18; TEMP 36.5; O2SAT 98
[2020-09-17] MEDS: AMITRIPTYLINE HCL 10 MG TABLET PO (20:50)
[2020-09-17 21:57] VITALS: BP 130/67; PULSE 93; RESP 16; TEMP 36.9; O2SAT 91
[2020-09-18 06:00] VITALS: BP 137/79; PULSE 93; RESP 16; TEMP 36.6; O2SAT 97
[2020-09-18] MEDS: CYCLOBENZAPRINE HCL 10 MG TABLET PO ×3 (06:01→20:59)
[2020-09-18] MEDS: LEVOTHYROXINE SODIUM 100 MCG TABLET PO (06:01)
[2020-09-18] MEDS: ACETAMINOPHEN 500 MG TABLET PO ×3 (06:01→23:22)
[2020-09-18 09:03] VITALS: PULSE 93
[2020-09-18] MEDS: METOPROLOL TARTRATE 25 MG TABLET PO (09:03)
[2020-09-18] MEDS: hydroCHLOROthiazide 12.5 MG CAPSULE PO (09:03)
[2020-09-18] MEDS: HYDROcodone/acetaminophen (*CRX) 5-325 MG TABLET 1 TAB PO (12:10)
[2020-09-18 14:00] VITALS: BP 102/66; PULSE 89; RESP 18; TEMP 36.8; O2SAT 93
--- NOTE | 2020-09-18 16:24 | WPDNEURORHBP ---
Subjective Date/time seen: 09/18/20 16:24 70 years old status post L4 burst fracture with bladder dysfunction and underlying hypertension remains involved in the physical therapy and occupational therapy pain is fairly well controlled blood pressure 102/66 with pulse 89 respiration 18 pulse ox 93% with temp 36.8? Review of Systems Review of Systems: All systems reviewed & are unremarkable except as noted in HPI and below Functional Status Ambulation Ability Ability to Ambulate 10 Feet: Independent Ability to Ambulate 50 Feet With 2 Turns: Independent Ability to Ambulate 150 Feet: Independent Ambulation Assistive Devices: Walker, Wheeled Transfers Ability Ability to Transfer In/Out of Chair: Independent Exam Const: General: cooperative and no acute distress Nutritional Appearance: average body habitus HENMT: Ears: hearing grossly normal bilaterally General nose exam: Normal external nose present Face and sinus: normal facial exam Mouth: Yes Normal oral and palatal mucosa present Eyes: General: appearance normal, both eyes and all related structures Neck: Neck: full ROM Resp: Effort & Inspection: normal respiratory effort and able to speak in complete sentences Auscultation: clear to auscultation bilaterally Cardio: Rate: regular rate GI: Auscultation: normal bowel sounds Skin: General skin exam: no rashes or lesions noted Neuro: General: patient oriented x3 Cranial nerves: Yes CN's II-XII intact bilaterally Cognition (Neuro): normal cognition Speech: normal speech Motor exam (neuro): 5/5 motor strength present throughout Deep tendon reflexes (DTR's): Right triceps reflex intensity grade: 1+, Rt Biceps (C5, C6): 1+, Left biceps reflex intensity grade: 1+, Right brachioradialis reflex intensity grade: 1+, Left brachioradialis reflex intensity grade: 1+, Right patellar reflex intensity grade: 1+, Left patellar reflex intensity grade: 1+, Right ankle reflex intensity grade: 1+ and Left ankle reflex intensity grade: 1+ Plantar Reflex Responses: downgoing: bilateral Psych: Appearance: grossly normal Objective Data Vital Signs Vital Signs: Vital Signs - 24 hr 09/17/20 21:57 09/18/20 06:00 09/18/20 09:03 Temperature 36.9 C 36.6 C Pulse Rate 93 93 93 Respiratory Rate 16 16 Blood Pressure 130/67 137/79 Pulse Oximetry 91 97 09/18/20 14:00 Temperature 36.8 C Pulse Rate 89 Respiratory Rate 18 Blood Pressure 102/66 Pulse Oximetry 93 Intake/Output Intake/Output: Intake & Output 09/15/20 09/16/20 09/17/20 09/18/20 23:59 23:59 23:59 23:59 Intake Total 720 720 840 600 Balance 720 720 840 600 Meds/Results Medications: Active Medications Generic Name Dose Route Start Last Admin Trade Name Ozzie PRN Reason Stop Dose Admin Acetaminophen 500 mg 09/07/20 00:00 09/18/20 16:09 Acetaminophen 500 Mg Tablet PO Not Given Q6HR DEVENDRA Hydrocodone Bitart/Acetaminophen 1 tab 09/16/20 09:15 09/18/20 12:10 Hydrocodone/Acetaminophen (*Crx) 5-325 Mg Tablet PO 1 tab Q4H PRN Administration Pain rated 4-6 Amitriptyline HCl 10 mg 09/06/20 23:45 09/17/20 20:50 Amitriptyline Hcl 10 Mg Tablet PO 10 mg HS DEVENDRA Administration Cyclobenzaprine HCl 10 mg 09/10/20 14:00 09/18/20 16:13 Cyclobenzaprine Hcl 10 Mg Tablet PO 10 mg Q8HR DEVENDRA Administration Hydrochlorothiazide 12.5 mg 09/07/20 09:00 09/18/20 09:03 Hydrochlorothiazide 12.5 Mg Capsule PO 12.5 mg DAILY DEVENDRA Administration Levothyroxine Sodium 100 mcg 09/07/20 06:30 09/18/20 06:01 Levothyroxine Sodium 100 Mcg Tablet PO 100 mcg DAILY@0630 DEVENDRA Administration Metoprolol Tartrate 25 mg 09/07/20 09:00 09/18/20 09:03 Metoprolol Tartrate 25 Mg Tablet PO 25 mg DAILY DEVENDRA Administration Polyethylene Glycol 17 gm 09/11/20 08:33 Polyethylene Glycol 3350 17 Gm Powd.Pack PO DAILY PRN Constipation Sodium Chloride 1 spray 09/14/20 06:47 09/14/20 07:39 Saline 0.65% Mynor Soln 44 Ml B
[2020-09-18 20:00] VITALS: PULSE 90; RESP 18; O2SAT 94
[2020-09-18] MEDS: AMITRIPTYLINE HCL 10 MG TABLET PO (20:59)
[2020-09-18 21:54] VITALS: BP 121/65; PULSE 90; RESP 18; TEMP 36.6; O2SAT 94
[2020-09-19 05:49] VITALS: BP 120/68; PULSE 86; RESP 16; TEMP 36.7; O2SAT 97
[2020-09-19] MEDS: CYCLOBENZAPRINE HCL 10 MG TABLET PO ×3 (06:09→21:54)
[2020-09-19] MEDS: ACETAMINOPHEN 500 MG TABLET PO ×4 (06:09→23:48)
[2020-09-19] MEDS: LEVOTHYROXINE SODIUM 100 MCG TABLET PO (06:09)
[2020-09-19 07:57] VITALS: PULSE 86
[2020-09-19] MEDS: METOPROLOL TARTRATE 25 MG TABLET PO (07:57)
[2020-09-19] MEDS: HYDROcodone/acetaminophen (*CRX) 5-325 MG TABLET 1 TAB PO (07:58)
[2020-09-19] MEDS: hydroCHLOROthiazide 12.5 MG CAPSULE PO (07:58)
--- NOTE | 2020-09-19 11:45 | PCDIET ---
Nutrition Follow-Up Complete: Nutrition Diagnosis: Suboptimal oral intake related to unknown etiology as evidenced by average intake of 69% of meals since admission. Nutrition Goal: Patient to consume 75% of meals/supplements or greater. Goal met. Patient consuming 75-100% of most meals on regular diet with Ensure Compact BID. No new recommendations at this time, other than obtaining new weight. Last recorded weight is 67.9 kg. Bowel Motility: Last documented BM on 09/15/20. Labs Reviewed: BUN (18), Cr (0.6) Meds Noted: Lopressor, Miralax prn, [place], Flexeril, Hydrochlorothiazide, Synthroid Additional Notes: No documented pressure sores. Will continue to monitor with same goal. Nutrition Monitoring and Evaluation: Follow up in 7 days.
--- NOTE | 2020-09-19 12:49 | WPDNEURORHBP ---
Subjective Date/time seen: status post L4 burst fracture with underlying hypertension and also history of bladder dysfunction as well has been involved in the physical therapy and occupational therapy, is experiencing some difficulties with the brace will most likely be discharged tomorrow, there is no changes in the medications, vital signs are stable Review of Systems Review of Systems: All systems reviewed & are unremarkable except as noted in HPI and below Functional Status Ambulation Ability Ability to Ambulate 10 Feet: Independent Ability to Ambulate 50 Feet With 2 Turns: Independent Ability to Ambulate 150 Feet: Independent Ambulation Assistive Devices: Walker, Wheeled Transfers Ability Ability to Transfer In/Out of Chair: Independent Exam Const: General: cooperative, comfortable, no acute distress, alert and awake Nutritional Appearance: average body habitus and thin Orientation/consciousness: patient oriented x3 Eyes: General: appearance normal, both eyes and all related structures Neck: Neck: full ROM Resp: Effort & Inspection: able to speak in complete sentences Auscultation: clear to auscultation bilaterally Cardio: Rate: regular rate Rhythm: regular rhythm Skin: General skin exam: no rashes or lesions noted Neuro: General: patient oriented x3 Cranial nerves: Yes CN's II-XII intact bilaterally Cognition (Neuro): normal cognition Speech: normal speech Motor exam (neuro): 5/5 motor strength present throughout Sensory Exam: normal sensation Coordination: [id number] test normal Psych: Appearance: grossly normal Objective Data Vital Signs Vital Signs: Vital Signs - 24 hr 09/18/20 14:00 09/18/20 20:00 09/18/20 21:54 Temperature 36.8 C 36.6 C Pulse Rate 89 90 90 Respiratory Rate 18 18 18 Blood Pressure 102/66 121/65 Pulse Oximetry 93 94 94 09/19/20 05:49 09/19/20 07:57 Temperature 36.7 C Pulse Rate 86 86 Respiratory Rate 16 Blood Pressure 120/68 Pulse Oximetry 97 Intake/Output Intake/Output: Intake & Output 09/16/20 09/17/20 09/18/20 09/19/20 23:59 23:59 23:59 23:59 Intake Total 720 840 960 360 Balance 720 840 960 360 Meds/Results Medications: Active Medications Generic Name Dose Route Start Last Admin Trade Name Freq PRN Reason Stop Dose Admin Acetaminophen 500 mg 09/07/20 00:00 09/19/20 12:18 Acetaminophen 500 Mg Tablet PO 500 mg Q6HR DEVENDRA Administration Hydrocodone Bitart/Acetaminophen 1 tab 09/16/20 09:15 09/19/20 07:58 Hydrocodone/Acetaminophen (*Crx) 5-325 Mg Tablet PO 1 tab Q4H PRN Administration Pain rated 4-6 Amitriptyline HCl 10 mg 09/06/20 23:45 09/18/20 20:59 Amitriptyline Hcl 10 Mg Tablet PO 10 mg HS DEVENDRA Administration Cyclobenzaprine HCl 10 mg 09/10/20 14:00 09/19/20 12:18 Cyclobenzaprine Hcl 10 Mg Tablet PO 10 mg Q8HR DEVENDRA Administration Hydrochlorothiazide 12.5 mg 09/07/20 09:00 09/19/20 07:58 Hydrochlorothiazide 12.5 Mg Capsule PO 12.5 mg DAILY DEVENDRA Administration Levothyroxine Sodium 100 mcg 09/07/20 06:30 09/19/20 06:09 Levothyroxine Sodium 100 Mcg Tablet PO 100 mcg DAILY@0630 DEVENDRA Administration Metoprolol Tartrate 25 mg 09/07/20 09:00 09/19/20 07:57 Metoprolol Tartrate 25 Mg Tablet PO 25 mg DAILY DEVENDRA Administration Polyethylene Glycol 17 gm 09/11/20 08:33 Polyethylene Glycol 3350 17 Gm Powd.Pack PO DAILY PRN Constipation Sodium Chloride 1 spray 09/14/20 06:47 09/14/20 07:39 Saline 0.65% Mynor Soln 44 Ml Btl NASAL 1 spray Q6HR PRN Administration Congestion Progress Note: A&P Assessment and Plan (1) L4 vertebral fracture: Code(s): S32.049A - Unspecified fracture of fourth lumbar vertebra, initial encounter for closed fracture Status: Acute (2) UTI (urinary tract infection): Qualifiers: Urinary tract infection type: acute cystitis Code(s): N39.0 - Urinary tract infection, site not spec
[2020-09-19 14:00] VITALS: BP 120/59; PULSE 92; RESP 18; TEMP 36.6; O2SAT 96
[2020-09-19 20:00] VITALS: PULSE 94; RESP 18; O2SAT 100
[2020-09-19] MEDS: AMITRIPTYLINE HCL 10 MG TABLET PO (21:53)
[2020-09-19 22:00] VITALS: BP 128/61; PULSE 94; RESP 18; TEMP 36.5; O2SAT 100
[2020-09-20 04:55] VITALS: BP 119/72; PULSE 60; RESP 16; TEMP 36.3; O2SAT 94
[2020-09-20] MEDS: CYCLOBENZAPRINE HCL 10 MG TABLET PO ×2 (06:37→12:43)
[2020-09-20] MEDS: LEVOTHYROXINE SODIUM 100 MCG TABLET PO (06:37)
[2020-09-20] MEDS: ACETAMINOPHEN 500 MG TABLET PO ×2 (06:39→12:44)
[2020-09-20 07:48] VITALS: PULSE 86
[2020-09-20] MEDS: METOPROLOL TARTRATE 25 MG TABLET PO (07:48)
[2020-09-20] MEDS: hydroCHLOROthiazide 12.5 MG CAPSULE PO (07:48)
--- NOTE | 2020-09-25 17:09 | PM.DS ---
DS: Admitting Diagnosis Admitting Diagnosis Admitting Diagnosis: L4 burst fracture DS: Summary Hospital Course Hospital Course: gradual improvement , remained stable had no fall during entire hospitalization Time Spent with Patient Time attestation: :ADMISSION FUNCTION: 70 years old right-handed female admitted to rehab floor with the primary rehab impairment category of orthopedic/other an etiological diagnosis of L4 burst fracture in addition to the comorbid conditions of 1. Hypertension 2. Bladder dysfunction 3. Fitted with TLSO brace 4. COVID test negative on August 31, 2020. At the time of admission functional measures were as follows. Eating set up Oral Care supervision Toileting Hygiene dependent Shower/Bathing substantial or maximal assistance Upper Body Dressing substantial or maximal assistance Lower Body Dressing substantial a maximal assistance Donning/Deep Water Footwear dependent Sit to Lying partial academic assistant Lying to Sitting partial assistance Sit to Stand partial assistance Bed to Chair Transfers partial assistance Toilet Transfers patient refused Car Transfers partial academic assistant Walking 10' not applicable Walking 50' with Two Turns not applicable Walking 150' not applicable Curb or Step partial assistance 4 Steps not applicable 12 Steps not applicable Picking Up Object not applicable [Wheelchair Mobility 50'] not applicable [Wheelchair Mobility 150'] not applicable GOALS: Eating [INDEPENDENT] Oral Care [INDEPENDENT] Toileting Hygiene supervision Upper Body Dressing supervision Lower Body Dressing supervise Donning/Deep Water Footwear supervision Rolling Left and Right independent Sit to Lying [INDEPENDENT] Lying to Sitting [INDEPENDENT] Sit to Stand [INDEPENDENT] Bed to Chair Transfers set up Toilet Transfers set up Car Transfers [INDEPENDENT] Walking 10' [INDEPENDENT] Walking 50' with Two Turns [INDEPENDENT] Walking 150' [INDEPENDENT] Curb or Step [INDEPENDENT] 4 Steps partial assistance 12 Steps partial assistance Picking Up Object [INDEPENDENT] [Wheelchair Mobility 50'] [INDEPENDENT] [Wheelchair Mobility 150'] [INDEPENDENT] DISCHARGE PERFORMANCE: Eating set up Oral Care [INDEPENDENT] Toileting Hygiene supervision Shower/Bathing partial or moderate assistance Upper Body Dressing partial or moderate assistance Lower Body Dressing [INDEPENDENT] Donning/Deep Water Footwear [INDEPENDENT] Rolling Left and Right [INDEPENDENT] Sit to Lying [INDEPENDENT] Lying to Sitting [INDEPENDENT] Sit to Stand [INDEPENDENT] Bed to Chair Transfers [INDEPENDENT] Toilet Transfers [INDEPENDENT] Car Transfers [INDEPENDENT] Walking 10' [INDEPENDENT] Walking 50' with Two Turns [INDEPENDENT] Walking 150' [INDEPENDENT] Curb or Step [INDEPENDENT] 4 Steps [INDEPENDENT] 12 Steps [INDEPENDENT] Picking Up Object [INDEPENDENT] [Wheelchair Mobility 50'] not applicable [Wheelchair Mobility 150'] not applicable # during the hospitalization patient remain involving the physical therapy and occupational therapy. At the time of discharge patient was able to ambulate up to 150ft independently using a wheeled walker and was able to transfer in out of chair independently her general physical examination remained stable and so as the neurological examination. At the time of discharge she was stable her vital signs were normal, and during the entire hospitalization he she had no falls or injuries she was discharged to home with a home health Discharge Plan Discharge Attending physician on discharge: Devin Sanders Discharging Clinician: Devin Sanders Anticipated Discharge Date/Time: 09/20/20 12:54 Patient Disposition: Home, Self-Care Activity: no driving and as tolerated Diet: regular Discharge Instructions: Per Care Coordination: Home Health services are being arranged through [facility] (which is the agency through [employer]). Valarie with [facility] will keep informed regarding Home Health arrangements.
== END 2020-09-20 13:30 | disposition home health service (06) | DRG 561 ==
PROVIDERS: Admitting Provider Psychiatry & Neurology Neurology; PCP Internal Medicine; Visit Provider Psychiatry & Neurology Neurology
DX: S32.041D Stable burst fracture of fourth lumbar vertebra, subsequent encounter for fracture with routine healing (principal); W19.XXXD Unspecified fall, subsequent encounter; G89.29 Other chronic pain; I10 Essential (primary) hypertension; M17.11 Unilateral primary osteoarthritis, right knee; R39.15 Urgency of urination; R32 Unspecified urinary incontinence; Z96.651 Presence of right artificial knee joint
CPT/HCPCS: 36415; 80048; 85025; 85049; 97110; 97116; 97161; 97166; 97530; 97535; 97542; A9270; J1644

== ENCOUNTER 2020-10-09 11:45 | Outpatient (CLI) | payer OTHER, SELFPAY | END 2020-10-09 11:46 | disposition home or self-care (01) | LOC: ANHCOVIDVC 11:45 | PROVIDERS: PCP Internal Medicine | DX: Z23 Encounter for immunization (principal) | CPT/HCPCS: 0001A; 91300 ==

== ENCOUNTER 2020-10-30 11:45 | Outpatient (CLI) | payer OTHER, SELFPAY | END 2020-10-30 11:46 | disposition home or self-care (01) | LOC: ANHCOVIDVC 11:45 | PROVIDERS: PCP Internal Medicine | DX: Z23 Encounter for immunization (principal) | CPT/HCPCS: 0002A; 91300 ==